=== PATIENT | male | born 1945 | race African-American/Black ===

== ENCOUNTER 2016-11-19 17:00 | Observation (INO) | payer MEDICARE, OTHER ==
[~2016-11-19] VITALS: Ht 167.6 cm; Wt 92.5 kg
[2016-11-19] VITALS (8 sets, daily range): BP systolic 128–144; BP diastolic 56–84; PULSE 65–98; RESP 16–20; TEMP 97.9–99; O2SAT 94–100
[~2016-11-19 17:00] MED LIST: ARTISOL2 EACH EYE; BUDE0.5S NEB; COLA100C PO; DUONI NEB; FURO1TAB93 PO; GLIP5 PO; HUMSS; HYDR-3533 PO; ISOS30 PO; LEVA500T PO; LORA1TAB PO; NITR.3 SL; POTA-267 PO; PROM25SU8 PO; SERO50TA PO; ZOLO50TA PO
--- NOTE | 2016-11-19 17:19 | PD ---
HPI Chief Complaint: Respiratory Symptoms Time Seen by Provider: 17:18 Travel History International Travel<30 days: No Contact w/Intl Traveler<30days: No Traveled to known affect area: No History of Present Illness HPI 71-year-old male came to the emergency room for history trach being dislodged. 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 Patient is not the best historian but thinks it has been out for 1-2 hours "but it could be more". Patient is able to breathe okay and his oxygen saturation is 100% on room air. He is also talking and communicating well but has reserved IQ. PFSH Past Medical History Narrative Medical List of his past medical, surgical, social and family history reviewed from the nursing note. Hx Anticoagulant Therapy: Yes Arthritis: Yes Asthma: Yes Atrial Fibrillation: Yes Autoimmune Disease: No Blood Disorders: No Anxiety: No Depression: Yes Heart Rhythm Problems: Yes Cancer: No Cardiac Catheterization: Yes Cardiovascular Problems: Yes High Cholesterol: Yes Chemotherapy: No Chest Pain: Yes Congestive Heart Failure: Yes COPD: No Cerebrovascular Accident: Yes Coronary Artery Disease: Yes Diabetes: Yes Diminished Hearing: Yes (HEARING AID) Deep Vein Thrombosis: Yes Endocrine: Yes Gastrointestinal Disorders: Yes GERD: Yes Glaucoma: No Genitourinary: Yes Headaches: Yes Hepatitis: Yes Hiatal Hernia: Yes Hypertension: Yes Immune Disorder: No Implanted Vascular Access Dvce: Yes Kidney Stones: Yes Musculoskeletal: Yes Neurologic: Yes (7 STROKES) Psychiatric: Yes Reproductive: No Respiratory: Yes Immunizations Current: No Migraines: No Myocardial Infarction: Yes Radiation Therapy: No Renal Failure: No Seizures: Yes Sickle Cell Disease: No Sleep Apnea: No Thyroid Disease: No Ulcer: No PNEUMOCCOCAL Vaccine (Year): 3 Past Surgical History Abdominal Surgery: Yes (HERNIA REPAIR) AICD: No Appendectomy: No Arteriovenous Shunt: No Body Medical Devices: cervical fusion Cardiac Surgery: Yes (CAROTID ENDARECTOMY) Cholecystectomy: No Coronary Artery Bypass Graft: No Coronary Stent: Yes (09/13) Ear Surgery: No Endocrine Surgery: No Eye Surgery: No Genitourinary Surgery: No Gynecologic Surgery: No Insulin Pump: No Joint Replacement: No Neurologic Surgery: Yes (CERVICAL FUSION) Oral Surgery: Yes (TEETH EXTRACTIONS) Pacemaker: No Thoracic Surgery: No Other Surgery: Yes (CYST REMOVAL, CAROTID ENDARTERECTOMY, TRACH IN PLACE) Social History Alcohol Use: No Tobacco Use: No (1979 05 PPD) Substance Use: No Allergies-Medications (Allergen,Severity, Reaction): Coded Allergies: No Known Allergies (Verified , 11/19/16) Comments No known drug allergies. Reported Meds & Prescriptions Reported Meds & Active Scripts Active Reported Nitroglycerin SL (Nitroglycerin) 0.4 Mg Subl 0.4 Mg SL DIRECTED PRN ONE TABLET UNDER THE TONGUE NEEDED FOR CHEST PAIN, MAY REPEAT EVERY FIVE MINUTES FOR A TOTAL OF 3 DOSES OR CALL 911 IF NO RELIEF Isosorbide Mononitrate ER (Isosorbide Mononitrate) 30 Mg Ellis 30 Mg PO DAILY Dulcolax Supp (Bisacodyl) 10 Mg Supp 10 Mg RECTAL DAILY PRN Enema Disposable (Sodium Phosphates) 1 Catalina Catalina 1 Applic RECTAL ON 4TH DAY PRN Milk of Magnesia Liq (Magnesium Hydroxide) 400 Mg/5 Ml Susp 30 Ml PO DAILY PRN Glipizide 5 Mg Tab 2.5 Mg PO BIDAC Take 30 minutes before a meal Glucagen Hypokit Inj Kit (Glucagon (Rdna) Inj Kit) 1 Mg Kit 1 Mg IM ONCE PRN Lasix (Furosemide) 40 Mg Tab 40 Mg PO BID Phenergan (Promethazine HCl) 25 Mg Tablet 25 Mg PO Q6H PRN Duoneb (Ipratropium-Albuterol Neb) 0.5-2.5 Mg/3 Ml Neb 3 Ml NEB Q6HR PRN Atorvastatin (Atorvastatin Calcium) 20 Mg Tab 20 Mg PO HS Lisinopril 2.5 Mg Tab 2.5 Mg PO DAILY Hold for systolic B/P less than 110 Duoneb (Ipratropium-Albuterol Neb) 0.5-2.5 Mg/3 Ml Neb 3 Ml NEB TID Meclizine (Meclizine HCl) 12.5 Mg Tab 12.5 Mg PO BID PRN Potassium Chloride ER (Potassium Chloride) 10 Meq Tab 10 Meq PO BID Tylenol (Acetaminophen) 325 Mg Tab 650 Mg PO Q4H PRN Maximum acetaminophen 3-4 grams; check daily total Levemir Flextouch Pen Inj (Insulin Detemir) 300 unit/3 ML Pen 16 Units SQ HS Novolog Flexpen Inj (Insulin Aspart) 300 Unit/3 Ml Pen 2-10 Units SQ BID Sliding Scale: 71-150=0 units, 151-200=2 units, 201-250=4 units, 251-300=6 units, 301-350=8 units, 351-400=10 units, .400=10 units and notify Coumadin (Warfarin) 2.5 Mg Tab 4.5 Mg PO DAILY Take 1 tablet (2.5mg) with 2mg tablet for a total dose of 4.5mg daily Coumadin (Warfarin) 2 Mg Tab 4.5 Mg PO DAILY Take 1 tablet (2mg) with 2.5mg tablet for a total dose of 4.5mg daily Multi-Vitamin/Minerals (Multiple Vitamins W/ Minerals) 1 Tab Tab 1 Tab PO DAILY Metformin (Metformin HCl) 1,000 Mg Tab 1,000 Mg PO BID With morning and evening meals Seroquel (Quetiapine Fumarate) 50 Mg Tab 50 Mg PO BID Colace (Docusate Sodium) 100 Mg Capsule 100 Mg PO BID Tylenol (Acetaminophen) 325 Mg Tab 650 Mg PO DAILY Guaifenesin ER (Guaifenesin) 600 Mg Tab.er.12h 600 Mg PO Q12HR Narrative Medication List of his home medications reviewed from the nursing note. Review of Systems Except as stated in HPI: all other systems reviewed are Neg Physical Exam Narrative GENERAL: Obese, no obvious distress SKIN: Focused skin assessment warm/dry. HEAD: Atraumatic. Normocephalic. EYES: Pupils equal and round. No scleral icterus. No injection or drainage. ENT: No nasal bleeding or discharge. Mucous membranes pink and moist. Trach stoma NECK: Trachea midline. No JVD. CARDIOVASCULAR: Regular rate and rhythm. No murmur appreciated. RESPIRATORY: No accessory muscle use. Clear to auscultation. Breath sounds equal bilaterally. GASTROINTESTINAL: Abdomen soft, non-tender, nondistended. Hepatic and splenic margins not palpable. MUSCULOSKELETAL: No obvious deformities. No clubbing. No cyanosis. No edema. NEUROLOGICAL: Awake and alert. No obvious cranial nerve deficits. Motor grossly within normal limits. Dysarthric speech. PSYCHIATRIC: Appropriate mood and affect; insight and judgment normal. Data Data Last Documented VS Vital Signs Date Time Temp Pulse Resp B/P Pulse Ox O2 Delivery O2 Flow Rate FiO2 11/19/16 18:19 94 18 141/72 99 Room Air 11/19/16 17:06 97.9 Orders ^ Saline Lock (11/19/16 18:29) Admit Order (Ed Use Only) (11/19/16 18:29) MDM Medical Decision Making Medical Screen Exam Complete: Yes Emergency Medical Condition: Yes Medical Record Reviewed: Yes Differential Diagnosis Trach fall out Narrative Course 7 PM I discussed the case with Dr. Beltre who is on from ENT since the initial trach was put in by Dr. Antoine. However Dr. Beltre very clearly told me that this was beyond the scope of his practice and general surgery should be consulted for trach. He was not sure why Dr. Antoine had put that trach in since general surgery test that in this hospital. At this point I discussed with Dr. Simental who is on-call for general surgery who said he will consult on the patient but will not take the patient under his service. I have let Dr. Romano know about this. Patient will be admitted to the ICU. Currently he is managing his airway well enough but needs to be observed and seen by surgeon. Procedures Procedure Narrative Trach insertion: I tried to insert a 5.0 in her diameter cannula trach that was similar to patient's original trach but fenestrated. After inserting about 2.5 cm I was unable to push it in any further. There was an obstruction. I try to insert a 5.0 ET tube which went in okay but patient did not tolerate it well side to take it out. Patient currently saturating 100%. EKG Prior to Arrival: No Physician Communication Physician Communication Dr. Beltre, Dr. Simental, Dr. Romano Diagnosis Primary Impression: trach dislodgment Admitting Information Admitting Physician Requests: Observation Sandra Slater MD Nov 19, 2016 17:18 Sandra Slater MD Nov 19, 2016 17:18
[2016-11-19] MEDS ORDERED: COUM2.5T PO (18:10)
[2016-11-19] MEDS ORDERED: GUAI600T34 PO (18:10)
[2016-11-19] MEDS ORDERED: ATOR20TA15 PO (18:10)
[2016-11-19] MEDS ORDERED: NITR1SUB3 SL (18:10)
[2016-11-19] MEDS ORDERED: MECL12.574 PO (18:10)
[2016-11-19] MEDS ORDERED: GLUCINJ IM (18:10)
[2016-11-19] MEDS ORDERED: GLIP5TAB8 PO (18:10)
[2016-11-19] MEDS ORDERED: IPRASOL NEB ×2 (18:10)
[2016-11-19] MEDS ORDERED: DULC10SU3 RECTAL (18:10)
[2016-11-19] MEDS ORDERED: POTA10TA2 PO (18:10)
[2016-11-19] MEDS ORDERED: NOVOINJ3 SQ (18:10)
[2016-11-19] MEDS ORDERED: FURO1TAB60 PO (18:10)
[2016-11-19] MEDS ORDERED: METF1000 PO (18:10)
[2016-11-19] MEDS ORDERED: TYLE325T PO ×2 (18:10)
[2016-11-19] MEDS ORDERED: PROM25TA10 PO (18:10)
[2016-11-19] MEDS ORDERED: MILKSUS PO (18:10)
[2016-11-19] MEDS ORDERED: COLA100C PO (18:10)
[2016-11-19] MEDS ORDERED: LISI2.5T3 PO (18:10)
[2016-11-19] MEDS ORDERED: INSU1INJ5 SQ (18:10)
[2016-11-19] MEDS ORDERED: MULTTAB62 PO (18:10)
[2016-11-19] MEDS ORDERED: ISOS30TA3 PO (18:10)
[2016-11-19] MEDS ORDERED: SERO50TA PO (18:10)
[2016-11-19] MEDS ORDERED: ENEMENE5 RECTAL (18:10)
[2016-11-19] MEDS ORDERED: COUM2TAB PO (18:10)
[2016-11-19] MEDS ORDERED: SODIUM CHLORIDE 0.9% FLUSH 10 ML FLUSH IV FLUSH PRN (18:45)
[2016-11-19] MEDS ORDERED: MAGNESIUM HYDROXIDE SUSP 30 ML CUP PO PRN ×2 (18:45)
[2016-11-19] MEDS ORDERED: GLUCAGON 1 MG IM PRN (18:45)
[2016-11-19] MEDS ORDERED: ACETAMINOPHEN 325 MG TAB PO PRN (18:45)
[2016-11-19] MEDS ORDERED: MECLIZINE HCL 25 MG TAB PO PRN (18:45)
[2016-11-19] MEDS ORDERED: BISACODYL 10 MG SUPP RECTAL PRN ×2 (18:45)
[2016-11-19] MEDS ORDERED: LACTULOSE SYRUP 20 GM/30 ML CUP PO PRN (18:45)
[2016-11-19] MEDS ORDERED: SENNOSIDES 8.6 MG TAB PO PRN (18:45)
[2016-11-19] MEDS ORDERED: NALOXONE HCL 0.4 MG/ML AMP IV PRN (18:45)
[2016-11-19] MEDS ORDERED: ONDANSETRON HCL 4 MG/2 ML VIAL IVP PRN (18:45)
[2016-11-19] MEDS ORDERED: GLUCAGON 1 MG/ML VIAL OTHER PRN (19:00)
[2016-11-19] MEDS ORDERED: cloNIDine HCL 0.1 MG TAB PO PRN (19:00)
[2016-11-19] MEDS ORDERED: ACETAMINOPHEN/HYDROcodone 325 MG/5 MG TAB PO PRN (19:00)
[2016-11-19] MEDS ORDERED: DEXTROSE 50% IN WATER 50 ML VIAL(D50) IV PRN (19:00)
[2016-11-19] MEDS ORDERED: PANTOPRAZOLE SODIUM 40 MG VIAL IV PUSH SCH (21:00)
[2016-11-19] MEDS ORDERED: DOCUSATE SODIUM 100 MG CAP PO SCH (21:00)
[2016-11-19] MEDS ORDERED: ATORVASTATIN 20 MG TAB PO SCH (21:00)
[2016-11-19] MEDS ORDERED: RESP: ALBUTEROL 2.5 MG/IPRATROPIUM 0.5 MG NEB (PRN) NEB (21:15)
[2016-11-19] MEDS ORDERED: PILL SPLITTER OTHER PRN (21:15)
[2016-11-19] MEDS ORDERED: INSULIN DETEMIR 100 UNITS/ML VIAL SQ SCH (21:30)
[2016-11-19] MEDS: metFORMIN HCL 500 MG TAB PO SCH (22:30)
[2016-11-19] MEDS: POTASSIUM CHLORIDE 10 MEQ CONTROLLED RELEASE TAB PO SCH (22:31)
[2016-11-19] MEDS: DOCUSATE SODIUM 50 MG/SENNA 8.6 MG TAB PO SCH (22:31)
[2016-11-19] MEDS: guaiFENesin E.R. 600 MG TAB PO SCH (22:31)
[2016-11-19] MEDS: FUROSEMIDE 40 MG TAB PO SCH (22:31)
[2016-11-19] MEDS: SODIUM CHLORIDE 0.9% FLUSH 10 ML FLUSH IV FLUSH SCH (22:32)
[2016-11-19] MEDS: QUEtiapine FUMARATE 25 MG TAB PO SCH (22:43)
[2016-11-19] MEDS: INSULIN ASPART SUPPLEMENTAL SCALE SQ SCH (22:45)
[2016-11-20] VITALS (10 sets, daily range): BP systolic 112–151; BP diastolic 53–88; PULSE 59–106; RESP 14–19; TEMP 97.9–98.6; O2SAT 98–99
[2016-11-20] MEDS: INSULIN ASPART SUPPLEMENTAL SCALE SQ SCH ×2 (07:00→11:00)
[2016-11-20] MEDS ORDERED: RESP: ALBUTEROL 2.5 MG/IPRATROPIUM 0.5 MG NEB (SCH) NEB (08:00)
--- NOTE | 2016-11-20 08:43 | HHI.DCPOC ---
Discharge Care Plan Diagnosis: (1) DM (diabetes mellitus) (2) Atrial fibrillation (3) PVD (peripheral vascular disease) (4) Carotid artery disease (5) Hypertension (6) CVA (cerebral infarction) (7) Tracheostomy complication (8) Tracheostomy dependent Goals to Promote Your Health * To prevent worsening of your condition and complications * To maintain your health at the optimal level Directions to Meet Your Goals Take your medications as prescribed Follow your dietary instruction Follow activity as directed Keep your appointments as scheduled Take your immunizations and boosters as scheduled If your symptoms worsen call your PCP, if no PCP go to Urgent Care Center or Emergency Room Smoking is Dangerous to Your Health. Avoid second hand smoke Call the 24-hour hour crisis hotline for domestic abuse at Dale Romano MD Nov 20, 2016 08:43
--- NOTE | 2016-11-20 08:45 | HHI.DS ---
Discharge Summary Admission Date Nov 19, 2016 at 18:31 Discharge Date: Nov 20, 2016 Admitting Diagnosis trach dislodgment (1) Tracheostomy dependent (2) Tracheostomy complication (3) CVA (cerebral infarction) (4) Hyperlipidemia (5) Hypertension (6) Carotid artery disease (7) PVD (peripheral vascular disease) (8) Atrial fibrillation (9) DM (diabetes mellitus) (10) DVT (deep venous thrombosis) Procedures trach replacement PE at Discharge GENERAL: SKIN: Warm and dry. TC C/D/I HEAD: Atraumatic. Normocephalic. EYES: Pupils equal and round. No scleral icterus. No injection or drainage. ENT: No nasal bleeding or discharge. Mucous membranes pink and moist. NECK: Trachea midline. No JVD. CARDIOVASCULAR: Regular rate and rhythm. RESPIRATORY: No accessory muscle use. Clear to auscultation. Breath sounds equal bilaterally. GASTROINTESTINAL: Abdomen soft, non-tender, nondistended. Hepatic and splenic margins not palpable. MUSCULOSKELETAL: Extremities without clubbing, cyanosis, or edema. No obvious deformities. NEUROLOGICAL: Awake and alert. No obvious cranial nerve deficits. Motor grossly within normal limits. 2 out of 5 muscle strength in the arms and legs. Normal speech. PSYCHIATRIC: Appropriate mood and affect; insight and judgment normal. Hospital Course 71 Y AAM. TRACH OUT AT SNF. BROUGHT INTO ER. ENT CONSULTED, SURGERY CONSULTED. [facility] MD ENDED UP REPLACING TRACH. PT IS STABLE. OK FOR DC. Discharge Disposition: Discharge to SNF Discharge Instructions DIET: Follow Instructions for: As Tolerated, No Restrictions Activities you can perform: Regular-No Restrictions Continued Medications: Acetaminophen (Tylenol) 325 Mg Tab 650 MG PO DAILY Ref 0 TAB Acetaminophen (Tylenol) 325 Mg Tab 650 MG PO Q4H Maximum acetaminophen 3-4 grams; check daily total PRN PAIN Ref 0 TAB Atorvastatin (Atorvastatin) 20 Mg Tab 20 MG PO HS Cholesterol Management #30 Ref 0 TAB Bisacodyl Supp (Dulcolax Supp) 10 Mg Supp 10 MG RECTAL DAILY PRN IF NO BM X 3 DAYS #12 Ref 0 SUPP Docusate Sodium (Colace) 100 Mg Capsule 100 MG PO BID Furosemide (Lasix) 40 Mg Tab 40 MG PO BID #60 Ref 0 TAB Glipizide (Glipizide) 5 Mg Tab 2.5 MG PO BIDAC Take 30 minutes before a meal Blood Sugar Management #60 Ref 0 TAB Glucagon (Rdna) Inj Kit (Glucagen Hypokit Inj Kit) 1 Mg Kit 1 MG IM ONCE PRN Blood Sugar Management #1 Ref 0 KIT Guaifenesin (Guaifenesin ER) 600 Mg Tab.er.12h 600 MG PO Q12HR Insulin Aspart Inj (Novolog Flexpen Inj) 300 Unit/3 Ml Pen 2-10 UNITS SQ BID Sliding Scale: 71-150=0 units, 151-200=2 units, 201-250=4 units, 251-300=6 units, 301-350=8 units, 351-400=10 units, .400=10 units and notify Blood Sugar Management #1 Ref 0 PEN Insulin Detemir Inj (Levemir Flextouch Pen Inj) 300 unit/3 ML Pen 16 UNITS SQ HS Blood Sugar Management Ref 0 PEN Ipratropium-Albuterol Neb (Duoneb) 0.5-2.5 Mg/3 Ml Neb 3 ML NEB TID Breathing Treatment #30 Ref 0 NEBULE Ipratropium-Albuterol Neb (Duoneb) 0.5-2.5 Mg/3 Ml Neb 3 ML NEB Q6HR PRN SHORTNESS OF BREATH #30 Ref 0 NEBULE Isosorbide Mononitrate ER (Isosorbide Mononitrate ER) 30 Mg Ellis 30 MG PO DAILY Prevent Chest Pain #30 Ref 0 TAB Lisinopril (Lisinopril) 2.5 Mg Tab 2.5 MG PO DAILY Hold for systolic B/P less than 110 #30 Ref 0 TAB Magnesium Hydroxide Liq (Milk of Magnesia Liq) 400 Mg/5 Ml Susp 30 ML PO DAILY PRN IF NO BM IN 3 DAYS #1 Ref 0 BOTTLE Meclizine (Meclizine) 12.5 Mg Tab 12.5 MG PO BID PRN VERTIGO Ref 0 TAB Metformin (Metformin) 1,000 Mg Tab 1000 MG PO BID With morning and evening meals Blood Sugar Management #60 Ref 0 TAB Multiple Vitamins W/ Minerals (Multi-Vitamin/Minerals) 1 Tab Tab 1 TAB PO DAILY Nutritional Supplement Nitroglycerin SL (Nitroglycerin SL) 0.4 Mg Subl 0.4 MG SL DIRECTED ONE TABLET UNDER THE TONGUE NEEDED FOR CHEST PAIN, MAY REPEAT EVERY FIVE MINUTES FOR A TOTAL OF 3 DOSES OR CALL 911 IF NO RELIEF PRN CHEST PAIN #100 Ref 0 TAB.SL Potassium Chloride ER (Potassium Chloride ER) 10 Meq Tab 10 MEQ PO BID Electrolyte Replacement #60 Ref 0 TAB Promethazine (Phenergan) 25 Mg Tablet 25 MG PO Q6H PRN NAUSEA OR VOMITING Ref 0 TAB Quetiapine (Seroquel) 50 Mg Tab 50 MG PO BID #60 Ref 0 TAB Sodium Phosphates (Enema Disposable) 1 Catalina Catalina 1 APPLIC RECTAL ON 4TH DAY PRN IF NO RESULTS FROM DULCOLAX Warfarin (Coumadin) 2 Mg Tab 4.5 MG PO DAILY Take 1 tablet (2mg) with 2.5mg tablet for a total dose of 4.5mg daily Prevent Blood Clot #30 Ref 0 TAB Warfarin (Coumadin) 2.5 Mg Tab 4.5 MG PO DAILY Take 1 tablet (2.5mg) with 2mg tablet for a total dose of 4.5mg daily Prevent Blood Clot #30 Ref 0 TAB Dale Romano MD Nov 20, 2016 08:45
[2016-11-20] MEDS ORDERED: WARFARIN SOD 2 MG TAB PO SCH (09:00)
[2016-11-20] MEDS ORDERED: LISINOPRIL 5 MG TAB PO SCH (09:00)
[2016-11-20] MEDS ORDERED: ISOSORBIDE MONONITRATE 30 MG TAB PO SCH (09:00)
[2016-11-20] MEDS ORDERED: WARFARIN SOD 2.5 MG TAB PO SCH (09:00)
[2016-11-20] MEDS: POTASSIUM CHLORIDE 10 MEQ CONTROLLED RELEASE TAB PO SCH (09:06)
[2016-11-20] MEDS: DOCUSATE SODIUM 50 MG/SENNA 8.6 MG TAB PO SCH (09:06)
[2016-11-20] MEDS: SODIUM CHLORIDE 0.9% FLUSH 10 ML FLUSH IV FLUSH SCH (09:07)
[2016-11-20] MEDS: QUEtiapine FUMARATE 25 MG TAB PO SCH (09:07)
[2016-11-20] MEDS: FUROSEMIDE 40 MG TAB PO SCH (09:07)
[2016-11-20] MEDS: metFORMIN HCL 500 MG TAB PO SCH (09:07)
[2016-11-20] MEDS: guaiFENesin E.R. 600 MG TAB PO SCH (09:07)
[2016-11-20 11:13] LABS: AUTOMATED NEUTROPHIL # 6.9 TH/MM3 (1.8-7.7); BASOPHIL % 0.4 % (0.0-2.0); EOSINOPHIL # 0.1 TH/MM3 (0-0.4); EOSINOPHIL % 1.4 % (0.0-4.0); HEMATOCRIT 38.6 % (39.0-51.0); HEMO FLAGS DIFF FINAL; LYMPH % 19.9 % (9.0-44.0); MEAN CELL VOLUME 89.5 FL (80.0-100.0); MEAN CORPUSCULAR HEMOGLOBIN 28.8 PG (27.0-34.0); MEAN CORPUSCULAR HGB CONC 32.1 % (32.0-36.0); MONO % 8.1 % (0.0-8.0); NEUT % 70.2 % (16.0-70.0); PLATELET COUNT 271 TH/MM3 (150-450); RED BLOOD COUNT 4.32 MIL/MM3 (4.50-5.90); RED CELL DISTRIBUTION WIDTH 13.9 % (11.6-17.2); WHITE BLOOD COUNT 9.8 TH/MM3 (4.0-11.0)
[2016-11-20 11:22] LABS: INTERNATIONAL NORMALIZED RATIO 1.7 RATIO; PROTHROMBIN TIME - PATIENT 19.1 SEC (9.8-11.6)
[2016-11-20 11:37] LABS: BICARBONATE 22.9 MEQ/L (21.0-32.0); POTASSIUM 3.8 MEQ/L (3.5-5.1)
== END 2016-11-20 11:24 ==
LOC: NEPE 17:00 → NEDA 18:31 → INTOOBSV 18:31 → NEDH 22:52 → HCIN 11-20 02:52
PROVIDERS: ADMIT Family Medicine; ATTEND Family Medicine
DX: Z43.0 Encounter for attention to tracheostomy (principal); J38.00 Paralysis of vocal cords and larynx, unspecified; I25.10 Atherosclerotic heart disease of native coronary artery without angina pectoris; I11.0 Hypertensive heart disease with heart failure; I73.9 Peripheral vascular disease, unspecified; I50.9 Heart failure, unspecified; E78.5 Hyperlipidemia, unspecified; I25.2 Old myocardial infarction; E78.00 Pure hypercholesterolemia, unspecified; J45.909 Unspecified asthma, uncomplicated; I48.91 Unspecified atrial fibrillation; E11.9 Type 2 diabetes mellitus without complications; K21.9 Gastro-esophageal reflux disease without esophagitis; K75.9 Inflammatory liver disease, unspecified; H91.90 Unspecified hearing loss, unspecified ear; F32.9 Major depressive disorder, single episode, unspecified; M19.90 Unspecified osteoarthritis, unspecified site; Z79.899 Other long term (current) drug therapy; Z79.01 Long term (current) use of anticoagulants; Z79.84 Long term (current) use of oral hypoglycemic drugs; Z86.73 Personal history of transient ischemic attack (TIA), and cerebral infarction without residual deficits
CPT/HCPCS: 80048; 82948; 85025; 85610; 92610; 94664; 97162; 99285; C9113; G0378; G8987; G8988

== ENCOUNTER 2016-12-09 18:45 | Emergency (ER) | payer MEDICARE, OTHER ==
[~2016-12-09 18:45] MED LIST changes: -ARTISOL2 EACH EYE; +ATOR20TA15 PO; -BUDE0.5S NEB; +COUM2.5T PO; +COUM2TAB PO; +DULC10SU3 RECTAL; -DUONI NEB; +ENEMENE5 RECTAL; +FURO1TAB60 PO; -FURO1TAB93 PO; -GLIP5 PO; +GLIP5TAB8 PO; +GLUCINJ IM; +GUAI600T34 PO; -HUMSS; -HYDR-3533 PO; +INSU1INJ5 SQ; +IPRASOL NEB; -ISOS30 PO; +ISOS30TA3 PO; -LEVA500T PO; +LISI2.5T3 PO; -LORA1TAB PO; +MECL12.574 PO; +METF1000 PO; +MILKSUS PO; +MULTTAB62 PO; -NITR.3 SL; +NITR1SUB3 SL; +NOVOINJ3 SQ; -POTA-267 PO; +POTA10TA2 PO; -PROM25SU8 PO; +PROM25TA10 PO; +TYLE325T PO; -ZOLO50TA PO
--- NOTE | 2016-12-09 19:25 | PD ---
HPI Chief Complaint: tracheostomy problem Time Seen by Provider: 19:23 Travel History International Travel<30 days: No Contact w/Intl Traveler<30days: No History of Present Illness HPI Patient is a 71-year-old male who arrives by EMS after 911 was called because he had the wrong size trach sleeve placed last night into his tracheostomy. Patient has absolutely no complaints currently. PFSH Past Medical History Hx Anticoagulant Therapy: Yes Arthritis: Yes Asthma: Yes Atrial Fibrillation: Yes Autoimmune Disease: No Blood Disorders: No Anxiety: No Depression: Yes Heart Rhythm Problems: Yes Cancer: No Cardiac Catheterization: Yes Cardiovascular Problems: Yes High Cholesterol: Yes Chemotherapy: No Chest Pain: Yes Congestive Heart Failure: Yes COPD: No Cerebrovascular Accident: Yes Coronary Artery Disease: Yes Diabetes: Yes Diminished Hearing: Yes (HEARING AID) Deep Vein Thrombosis: Yes Endocrine: Yes Gastrointestinal Disorders: Yes GERD: Yes Glaucoma: No Genitourinary: Yes Headaches: Yes Hepatitis: Yes Hiatal Hernia: Yes Hypertension: Yes Immune Disorder: No Implanted Vascular Access Dvce: Yes Kidney Stones: Yes Musculoskeletal: Yes Neurologic: Yes (7 STROKES) Psychiatric: Yes Reproductive: No Respiratory: Yes Immunizations Current: No Migraines: No Myocardial Infarction: Yes Radiation Therapy: No Renal Failure: No Seizures: Yes Sickle Cell Disease: No Sleep Apnea: No Thyroid Disease: No Ulcer: No PNEUMOCCOCAL Vaccine (Year): 3 Past Surgical History Abdominal Surgery: Yes (HERNIA REPAIR) AICD: No Appendectomy: No Arteriovenous Shunt: No Body Medical Devices: cervical fusion Cardiac Surgery: Yes (CAROTID ENDARECTOMY) Cholecystectomy: No Coronary Artery Bypass Graft: No Coronary Stent: Yes (09/13) Ear Surgery: No Endocrine Surgery: No Eye Surgery: No Genitourinary Surgery: No Gynecologic Surgery: No Insulin Pump: No Joint Replacement: No Neurologic Surgery: Yes (CERVICAL FUSION) Oral Surgery: Yes (TEETH EXTRACTIONS) Pacemaker: No Thoracic Surgery: No Other Surgery: Yes (CYST REMOVAL, CAROTID ENDARTERECTOMY, TRACH IN PLACE) Social History Alcohol Use: No Tobacco Use: No (1979 05 PPD) Substance Use: No Allergies-Medications (Allergen,Severity, Reaction): Coded Allergies: No Known Allergies (Verified , 12/09/16) Reported Meds & Prescriptions Reported Meds & Active Scripts Active Reported Nitroglycerin SL (Nitroglycerin) 0.4 Mg Subl 0.4 Mg SL DIRECTED PRN ONE TABLET UNDER THE TONGUE NEEDED FOR CHEST PAIN, MAY REPEAT EVERY FIVE MINUTES FOR A TOTAL OF 3 DOSES OR CALL 911 IF NO RELIEF Isosorbide Mononitrate ER (Isosorbide Mononitrate) 30 Mg Ellis 30 Mg PO DAILY Dulcolax Supp (Bisacodyl) 10 Mg Supp 10 Mg RECTAL DAILY PRN Enema Disposable (Sodium Phosphates) 1 Catalina Catalina 1 Applic RECTAL ON 4TH DAY PRN Milk of Magnesia Liq (Magnesium Hydroxide) 400 Mg/5 Ml Susp 30 Ml PO DAILY PRN Glipizide 5 Mg Tab 2.5 Mg PO BIDAC Take 30 minutes before a meal Glucagen Hypokit Inj Kit (Glucagon (Rdna) Inj Kit) 1 Mg Kit 1 Mg IM ONCE PRN Lasix (Furosemide) 40 Mg Tab 40 Mg PO BID Phenergan (Promethazine HCl) 25 Mg Tablet 25 Mg PO Q6H PRN Duoneb (Ipratropium-Albuterol Neb) 0.5-2.5 Mg/3 Ml Neb 3 Ml NEB Q6HR PRN Atorvastatin (Atorvastatin Calcium) 20 Mg Tab 20 Mg PO HS Lisinopril 2.5 Mg Tab 2.5 Mg PO DAILY Hold for systolic B/P less than 110 Duoneb (Ipratropium-Albuterol Neb) 0.5-2.5 Mg/3 Ml Neb 3 Ml NEB TID Meclizine (Meclizine HCl) 12.5 Mg Tab 12.5 Mg PO BID PRN Potassium Chloride ER (Potassium Chloride) 10 Meq Tab 10 Meq PO BID Tylenol (Acetaminophen) 325 Mg Tab 650 Mg PO Q4H PRN Maximum acetaminophen 3-4 grams; check daily total Levemir Flextouch Pen Inj (Insulin Detemir) 300 unit/3 ML Pen 16 Units SQ HS Novolog Flexpen Inj (Insulin Aspart) 300 Unit/3 Ml Pen 2-10 Units SQ BID Sliding Scale: 71-150=0 units, 151-200=2 units, 201-250=4 units, 251-300=6 units, 301-350=8 units, 351-400=10 units, .400=10 units and notify Coumadin (Warfarin) 2.5 Mg Tab 4.5 Mg PO DAILY Take 1 tablet (2.5mg) with 2mg tablet for a total dose of 4.5mg daily Coumadin (Warfarin) 2 Mg Tab 4.5 Mg PO DAILY Take 1 tablet (2mg) with 2.5mg tablet for a total dose of 4.5mg daily Multi-Vitamin/Minerals (Multiple Vitamins W/ Minerals) 1 Tab Tab 1 Tab PO DAILY Metformin (Metformin HCl) 1,000 Mg Tab 1,000 Mg PO BID With morning and evening meals Seroquel (Quetiapine Fumarate) 50 Mg Tab 50 Mg PO BID Colace (Docusate Sodium) 100 Mg Capsule 100 Mg PO BID Tylenol (Acetaminophen) 325 Mg Tab 650 Mg PO DAILY Guaifenesin ER (Guaifenesin) 600 Mg Tab.er.12h 600 Mg PO Q12HR Review of Systems Except as stated in HPI: all other systems reviewed are Neg Physical Exam Narrative GENERAL: Well-nourished, well-developed patient. SKIN: Focused skin assessment warm/dry. HEAD: Normocephalic. EYES: No scleral icterus. No injection or drainage. ENT: Patient is a [address], site is clean dry and intact. The sleeve is hanging out and has a speech valve at the end of it. NECK: Supple, trachea midline. No JVD or lymphadenopathy. CARDIOVASCULAR: Regular rate and rhythm without murmurs, gallops, or rubs. RESPIRATORY: Breath sounds equal bilaterally. No accessory muscle use. GASTROINTESTINAL: Abdomen soft, non-tender, nondistended. MUSCULOSKELETAL: No cyanosis, or edema. BACK: Nontender without obvious deformity. No CVA tenderness. Data Data Last Documented VS Vital Signs Date Time Temp Pulse Resp B/P Pulse Ox O2 Delivery O2 Flow Rate FiO2 12/09/16 19:40 98.1 84 16 168/88 100 MDM Medical Decision Making Medical Screen Exam Complete: Yes Emergency Medical Condition: Yes Differential Diagnosis Tracheostomy problem, tracheostomy dependent, tracheitis unlikely. Narrative Course Patient was roomed emergency department, with minimal effort his sleeve was removed and a new 50 sleeve was placed. He was locked in place in his valve was placed on top of it. The patient had no shortness of breath and no other physical complaints or warrants further workup at this time. He stable for discharge home, bedridden was called and was transported back to his facility. Diagnosis Primary Impression: Tracheostomy complication Disposition: DISCHARGE HOME Condition: Stable Paul Hernandez MD Dec 09, 2016 19:25
[2016-12-09 19:40] VITALS: BP 168/88; PULSE 84; RESP 16; TEMP 98.1; O2SAT 100
== END 2016-12-09 22:36 | disposition home or self-care (01) ==
LOC: NEPD 18:45
DX: J95.00 Unspecified tracheostomy complication (principal); E11.9 Type 2 diabetes mellitus without complications; E78.00 Pure hypercholesterolemia, unspecified; H91.90 Unspecified hearing loss, unspecified ear; I11.0 Hypertensive heart disease with heart failure; I25.10 Atherosclerotic heart disease of native coronary artery without angina pectoris; I25.2 Old myocardial infarction; I48.91 Unspecified atrial fibrillation; I50.9 Heart failure, unspecified; Z79.01 Long term (current) use of anticoagulants; Z79.4 Long term (current) use of insulin; Z86.718 Personal history of other venous thrombosis and embolism; Z86.73 Personal history of transient ischemic attack (TIA), and cerebral infarction without residual deficits; Z87.442 Personal history of urinary calculi; Z95.5 Presence of coronary angioplasty implant and graft
CPT/HCPCS: 99283

== ENCOUNTER 2017-01-10 08:16 | Emergency (ER) | payer MEDICARE, OTHER ==
[~2017-01-10] VITALS: Ht 165.1 cm; Wt 92.0 kg
[2017-01-10] VITALS (9 sets, daily range): BP systolic 114–159; BP diastolic 65–99; PULSE 89–100; RESP 18–20; TEMP 98.3; O2SAT 98–100
--- NOTE | 2017-01-10 08:52 | PD ---
HPI Chief Complaint: Respiratory Symptoms Time Seen by Provider: 08:49 Travel History International Travel<30 days: No Contact w/Intl Traveler<30days: No Traveled to known affect area: No History of Present Illness HPI SENT FROM [facility] DUE TO DISLODGED TRACH TUBE, NO RESP DISTRESS. CURRENTLY , NO ACTIVE COUGHING BUT PATIENT IS NOT A GREAT HISTORIAN PFSH Past Medical History Hx Anticoagulant Therapy: Yes Arthritis: Yes Asthma: Yes Atrial Fibrillation: Yes Autoimmune Disease: No Blood Disorders: No Anxiety: No Depression: Yes Heart Rhythm Problems: Yes Cancer: No Cardiac Catheterization: Yes Cardiovascular Problems: Yes High Cholesterol: Yes Chemotherapy: No Chest Pain: Yes Congestive Heart Failure: Yes COPD: No Cerebrovascular Accident: Yes Coronary Artery Disease: Yes Diabetes: Yes Patient Takes Glucophage: Yes Diminished Hearing: Yes (HEARING AID) Deep Vein Thrombosis: Yes Endocrine: Yes Gastrointestinal Disorders: Yes GERD: Yes Glaucoma: No Genitourinary: Yes Headaches: Yes Hepatitis: Yes Hiatal Hernia: Yes Heparin Induced Thrombocytopen: No Hypertension: Yes Immune Disorder: No Implanted Vascular Access Dvce: Yes Kidney Stones: Yes Musculoskeletal: Yes Neurologic: Yes (7 STROKES) Psychiatric: Yes Reproductive: No Respiratory: Yes Immunizations Current: No Migraines: No Myocardial Infarction: Yes Radiation Therapy: No Renal Failure: No Seizures: Yes Sickle Cell Disease: No Sleep Apnea: No Thyroid Disease: No Ulcer: No PNEUMOCCOCAL Vaccine (Year): 3 ?: Not Past Surgical History Abdominal Surgery: Yes (HERNIA REPAIR) AICD: No Appendectomy: No Arteriovenous Shunt: No Body Medical Devices: cervical fusion Cardiac Surgery: Yes (CAROTID ENDARECTOMY) Cholecystectomy: No Coronary Artery Bypass Graft: No Coronary Stent: Yes (09/13) Ear Surgery: No Endocrine Surgery: No Eye Surgery: No Genitourinary Surgery: No Gynecologic Surgery: No Insulin Pump: No Joint Replacement: No Neurologic Surgery: Yes (CERVICAL FUSION) Oral Surgery: Yes (TEETH EXTRACTIONS) Pacemaker: No Thoracic Surgery: No Other Surgery: Yes (CYST REMOVAL, CAROTID ENDARTERECTOMY, TRACH IN PLACE) Family History Family Myocardial Infarction: Yes (MOTHER HAD [place] ) Social History Alcohol Use: No Tobacco Use: No (1979) Substance Use: No Allergies-Medications (Allergen,Severity, Reaction): Coded Allergies: No Known Allergies (Verified , 01/10/17) Reported Meds & Prescriptions Reported Meds & Active Scripts Active Reported Nitroglycerin SL (Nitroglycerin) 0.4 Mg Subl 0.4 Mg SL DIRECTED PRN ONE TABLET UNDER THE TONGUE NEEDED FOR CHEST PAIN, MAY REPEAT EVERY FIVE MINUTES FOR A TOTAL OF 3 DOSES OR CALL 911 IF NO RELIEF Isosorbide Mononitrate ER (Isosorbide Mononitrate) 30 Mg Ellis 30 Mg PO DAILY Dulcolax Supp (Bisacodyl) 10 Mg Supp 10 Mg RECTAL DAILY PRN Enema Disposable (Sodium Phosphates) 1 Catalina Catalina 1 Applic RECTAL ON 4TH DAY PRN Milk of Magnesia Liq (Magnesium Hydroxide) 400 Mg/5 Ml Susp 30 Ml PO DAILY PRN Glipizide 5 Mg Tab 2.5 Mg PO BIDAC Take 30 minutes before a meal Glucagen Hypokit Inj Kit (Glucagon (Rdna) Inj Kit) 1 Mg Kit 1 Mg IM ONCE PRN Lasix (Furosemide) 40 Mg Tab 40 Mg PO BID Phenergan (Promethazine HCl) 25 Mg Tablet 25 Mg PO Q6H PRN Duoneb (Ipratropium-Albuterol Neb) 0.5-2.5 Mg/3 Ml Neb 3 Ml NEB Q6HR PRN Atorvastatin (Atorvastatin Calcium) 20 Mg Tab 20 Mg PO HS Lisinopril 2.5 Mg Tab 2.5 Mg PO DAILY Hold for systolic B/P less than 110 Duoneb (Ipratropium-Albuterol Neb) 0.5-2.5 Mg/3 Ml Neb 3 Ml NEB TID Meclizine (Meclizine HCl) 12.5 Mg Tab 12.5 Mg PO BID PRN Potassium Chloride ER (Potassium Chloride) 10 Meq Tab 10 Meq PO BID Tylenol (Acetaminophen) 325 Mg Tab 650 Mg PO Q4H PRN Maximum acetaminophen 3-4 grams; check daily total Levemir Flextouch Pen Inj (Insulin Detemir) 300 unit/3 ML Pen 16 Units SQ HS Novolog Flexpen Inj (Insulin Aspart) 300 Unit/3 Ml Pen 2-10 Units SQ BID Sliding Scale: 71-150=0 units, 151-200=2 units, 201-250=4 units, 251-300=6 units, 301-350=8 units, 351-400=10 units, .400=10 units and notify Coumadin (Warfarin) 2.5 Mg Tab 4.5 Mg PO DAILY Take 1 tablet (2.5mg) with 2mg tablet for a total dose of 4.5mg daily Coumadin (Warfarin) 2 Mg Tab 4.5 Mg PO DAILY Take 1 tablet (2mg) with 2.5mg tablet for a total dose of 4.5mg daily Multi-Vitamin/Minerals (Multiple Vitamins W/ Minerals) 1 Tab Tab 1 Tab PO DAILY Metformin (Metformin HCl) 1,000 Mg Tab 1,000 Mg PO BID With morning and evening meals Seroquel (Quetiapine Fumarate) 50 Mg Tab 50 Mg PO BID Colace (Docusate Sodium) 100 Mg Capsule 100 Mg PO BID Tylenol (Acetaminophen) 325 Mg Tab 650 Mg PO DAILY Guaifenesin ER (Guaifenesin) 600 Mg Tab.er.12h 600 Mg PO Q12HR Review of Systems Except as stated in HPI: all other systems reviewed are Neg Physical Exam Narrative GENERAL: PATIENT IS A BIT APPREHENSIVE SKIN: Warm and dry. HEAD: Atraumatic. Normocephalic. EYES: Pupils equal and round. No scleral icterus. No injection or drainage. ENT: No nasal bleeding or discharge. Mucous membranes pink and moist. NECK: Trachea midline. No JVD. TRACH OSTOMY NOTED, SLIGHTLY BLODDY POSSIBLY DUE FROM DISLODGEMENT (SUCTIONED) CARDIOVASCULAR: Regular rate and rhythm. RESPIRATORY: No accessory muscle use. Clear to auscultation. Breath sounds equal bilaterally. GASTROINTESTINAL: Abdomen soft, non-tender, nondistended. Hepatic and splenic margins not palpable. MUSCULOSKELETAL: Extremities without clubbing, cyanosis, or edema. No obvious deformities. NEUROLOGICAL: Awake and alert. No obvious cranial nerve deficits. Motor grossly within normal limits. Five out of 5 muscle strength in the arms and legs. Normal speech. PSYCHIATRIC: Appropriate mood and affect; insight and judgment normal. Data Data Last Documented VS Vital Signs Date Time Temp Pulse Resp B/P (MAP) Pulse Ox O2 Delivery O2 Flow Rate FiO2 01/10/17 10:02 100 20 124/84 (97) 99 Trach Collar 15.00 01/10/17 08:20 98.3 Orders Orders Midazolam Inj (Versed Inj) (01/10/17 08:54) Midazolam Inj (Versed Inj) (01/10/17 09:17) Midazolam Inj (Versed Inj) (01/10/17 10:29) [facility] Medical Decision Making Medical Screen Exam Complete: Yes Emergency Medical Condition: Yes Medical Record Reviewed: Yes Differential Diagnosis N/A Narrative Course ATTEMPTED TO PLACE THE SAME 5-0 FENESTRATED TRACH TUBE IN USING AN INTRODUCER--- I WAS ABLE TO EASILY PLACE INTRODUCER IN BUT UNABLE TO PASS TRACH 5 OR 4-0 THROUGH, SO CALL MADE TO DOCS BELOW TO ASSIST IN REPLACING. Physician Communication Physician Communication D/W IR WHO STATED NOT DONE BY IR, NEXT I SPOKE W/ DR PATEL WHO STATED TO CALL ENT [facility] WHO PLACED IT, DR NEFF DEBT COLLECTOR FOR [facility] STATED THAT HE HAS NOT DONE ONE IN "YEARS" AND TO CALL GENERAL SURGERY FOR HELP IN REPLACING..... DR MOSS PERSONALLY CAME DOWN AND SUCCESSFULLY REPLACED IT Diagnosis Primary Impression: TRACHEOSTOMY DISLODGEMENT S/P REPLACEMENT Lee Brush MD Jan 10, 2017 08:52
[2017-01-10] MEDS ORDERED: MIDAZOLAM HCL 5 MG/ML VIAL (1 ML) ONE ×3 (08:54→10:29)
[2017-01-10 11:18] LABS: APTT (PATIENT) 34.8 SEC (24.3-30.1); INTERNATIONAL NORMALIZED RATIO 2.3 RATIO; PROTHROMBIN TIME - PATIENT 26.5 SEC (9.8-11.6)
--- NOTE | 2017-01-11 06:23 | MB ---
cc: ELIECER SIMENTAL MD DATE OF CONSULTATION 01/10/2017 REASON FOR CONSULTATION Dislodgement of tracheostomy. HISTORY OF PRESENT ILLNESS The patient is a 71-year-old male who underwent a previous carotid endarterectomy and some sort of laryngeal damage necessitating a tracheostomy. The patient underwent tracheostomy by Dr. Antoine who is an ENT and subsequently has had multiple issues with a tracheostomy including tracheostomy dislodgement. On consultation with Dr. Ascencio who is covering for ENT, evidently does not know how to do replacement of tracheostomy and is very uncomfortable in the neck area despite being an ENT surgeon and refused to cover and assist in replacement of tracheostomy despite him being diagnostic cardiac sonographer coverage for the head/neck ENT service. Therefore Surgery was consulted for evaluation and possible replacement of tracheostomy due to dislodgement. The patient is a very poor historian. Records were reviewed and the chart obtained. Evidently the patient is at a custodial and again the tracheostomy has come out several times and replaced. Attempts to be replaced to the emergency department were not successful and again surgical consultation was warranted. On my assessment the patient is stable relatively. A nasal trumpet is in place and he is sating 98% and his stoma site is patent, however, somewhat stenosed. He denies any significant shortness of breath and is not in respiratory distress but is coughing up some phlegm and mucus. PAST MEDICAL HISTORY 1. History of cardiac cath. 2. Cholesterolemia. 3. CHF. 4. Stroke. 5. Diabetes. 6. Coronary artery disease. 7. DVT. 8. Gastroesophageal reflux disease. 9. Hepatitis. 10. Hiatal hernia. 11. Hypertension. 12. Kidney stones. 13. Seizures. 14. Arthritis. 15. Asthma. 16. Atrial fibrillation on Coumadin. PAST SURGICAL HISTORY 1. Hernia repair. 2. Carotid endarterectomy. 3. Cervical fusion. 4. Coronary stents. 5. Teeth extraction. 6. Cyst removal. 7. Tracheostomy by Dr. Antoine. FAMILY HISTORY Mother with NE, coronary disease. SOCIAL HISTORY Denies ETOH, smoking or IVDA. Past history of smoking. ALLERGIES No known drug allergies. MEDICATIONS See EMR. Coumadin. REVIEW OF SYSTEMS GENERAL: Difficult to obtain. Appears responsive. NECK/HEENT: Stoma site tracheostomy. RESPIRATORY: Complained of cough. Denies wheeze. CARDIOVASCULAR: Denies chest pain or palpitations. ABDOMEN: Denies nausea or vomiting. : Denies dysuria, hematuria. MUSCULOSKELETAL: Denies pain or swelling. NEUROLOGIC: Denies numbness, tingling. PHYSICAL EXAMINATION GENERAL: No acute distress. VITAL SIGNS: Temperature 98.3, pulse 100, respirations 20, blood pressure 124/84, saturation 99%. HEENT: Pupils equal, round, reactive. NECK: Stoma site patent but stenosed. Scant blood. Healed carotid endarterectomy surgical scar. LUNGS: Bilateral expansion, coarse. HEART: S1-S2, regularly irregular. ABDOMEN: Soft, nontender, nondistended. : Within normal limits. MUSCULOSKELETAL: Warm, well-perfused. PSYCH: Appropriate mood and affect. LABORATORY AND DIAGNOSTIC DATA INR 2.3. PT 26.5. No imaging currently available. ASSESSMENT The patient poor historian, 71-year-old male presents with dislodgement of tracheostomy, previous tracheostomy placed by Dr. Antoine with ENT. Evidently current ENT coverage as very uncomfortable with dealing with tracheostomies or head and neck complications and issues. PLAN After a full workup, discussed with the emergency department attending for emergent replacement of Shiley tracheostomy. This will plan to be done at bedside. PROCEDURE NOTE The patient was placed upright in the bed with a shoulder roll placed to extend the neck. Suction obtained. Nasal cannula oxygenation up to 100%. T-tube placed, available and ready along with ET tube and intubation supplies as needed. A #4 Shiley was placed after lubrication and placement of an introducer guide into the stoma track. The tracheostomy was placed over this and guidewire into the trach. This was secured in place with trache ties. The patient was then suctioned multiple times. The patient was noted to have 99% saturation and the stethoscope confirmed bilateral breath sounds. The patient tolerated the procedure well. PREOPERATIVE DIAGNOSIS Dislodged trach. POSTOPERATIVE DIAGNOSIS Dislodged trach. PROCEDURE PERFORMED Reinsertion of tracheostomy at bedside. SURGEON Dr. Eliecer Simental OFFBE[employer] SEW[employer] PIPE See ER sheet. ANESTHESIA 2.5 of Versed. COMPLICATIONS None. WOUND CLASSIFICATION Clean. FINDINGS Scant blood. Good placement of tracheostomy. Saturations 99%. Confirmation of trach with bilateral breath sounds evident. MD VERONIKA Urias/JANIE /9:19 PM /5:57 AM MTDIván
--- NOTE | 2017-01-11 06:29 | MR ---
cc: RON SIMENTAL MD DATE 01/10/2017 PROCEDURE NOTE The patient was placed upright in the bed with a shoulder roll placed to extend the neck. Suction obtained. Nasal cannula oxygenation up to 100%. T-tube placed, available and ready along with ET tube and intubation supplies as needed. A #4 Shiley was placed after lubrication and placement of an introducer guide into the stoma track. The tracheostomy was placed over this and guidewire into the trach. This was secured in place with trach ties. The patient was then suctioned multiple times. The patient was noted to have 99% saturation and the stethoscope confirmed bilateral breath sounds. The patient tolerated the procedure well. PREOPERATIVE DIAGNOSIS Dislodged trach. POSTOPERATIVE DIAGNOSIS Dislodged trach. PROCEDURE PERFORMED Reinsertion of tracheostomy at bedside. SURGEON Dr. Ron Simental CRUST SORTER See ER sheet. ANESTHESIA 2.5 of Versed. COMPLICATIONS None. WOUND CLASSIFICATION Clean. FINDINGS Scant blood. Good placement of tracheostomy. Saturations 99%. Confirmation of trach with bilateral breath sounds evident. MD VERONIKA Urias/SSB /9:19 PM /6:20 AM .2
== END 2017-01-10 14:33 | disposition home or self-care (01) ==
LOC: NEPE 08:16
DX: J95.09 Other tracheostomy complication (principal); R05 Cough; I50.9 Heart failure, unspecified; E11.9 Type 2 diabetes mellitus without complications; I25.10 Atherosclerotic heart disease of native coronary artery without angina pectoris; K21.9 Gastro-esophageal reflux disease without esophagitis; I11.0 Hypertensive heart disease with heart failure; R56.9 Unspecified convulsions; J45.909 Unspecified asthma, uncomplicated
CPT/HCPCS: 85610; 85730; 99285; A7521; J2250

== ENCOUNTER 2017-07-01 18:25 | Observation (INO) | payer MEDICARE, OTHER ==
[2017-07-01] VITALS (7 sets, daily range): BP systolic 141–161; BP diastolic 78–121; PULSE 84–108; RESP 18–22; TEMP 98–98.3; O2SAT 98–100
[~2017-07-01] VITALS: Ht 167.6 cm; Wt 75.0 kg
[~2017-07-01 18:25] MED LIST changes: -COLA100C PO; +COLA100C5 PO
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
[2017-07-01] MEDS ORDERED: WARF-58 PO (19:27)
[2017-07-01] MEDS ORDERED: TRAM50TA PO (19:27)
[2017-07-01] MEDS ORDERED: [UNRECOGNIZED DRUG - OTHER] TOPICAL (19:27)
[2017-07-01] MEDS ORDERED: QUET1TAB7 PO (19:27)
[2017-07-01] MEDS ORDERED: BUDE0.5S NEB (19:27)
[2017-07-01] MEDS ORDERED: LIDOCAINE 2% JELLY 5 ML TUBE ONE (19:33)
[2017-07-01] MEDS ORDERED: LIDOCAINE 2% JELLY 30 ML TUBE TOPICAL ONE (19:45)
[2017-07-01] MEDS ORDERED: LIDOCAINE-PRILOCAIN 2.5% CREAM 5 GM TUBE ONE (19:56)
[2017-07-01] MEDS ORDERED: SODIUM CHLORIDE 0.9% FLUSH 10 ML FLUSH IVF PRN (20:45)
[2017-07-01 20:52] LABS: AUTOMATED NEUTROPHIL # 4.5 TH/MM3 (1.8-7.7); BASOPHIL % 0.6 % (0.0-2.0); EOSINOPHIL # 0.2 TH/MM3 (0-0.4); HEMATOCRIT 36.9 % (39.0-51.0); HEMOGLOBIN 12.3 GM/DL (13.0-17.0); LYMPH % 29.6 % (9.0-44.0); LYMPHOCYTE # 2.4 TH/MM3 (1.0-4.8); MEAN CELL VOLUME 89.6 FL (80.0-100.0); MEAN CORPUSCULAR HEMOGLOBIN 29.9 PG (27.0-34.0); MEAN CORPUSCULAR HGB CONC 33.4 % (32.0-36.0); MEAN PLATELET VOLUME 7.8 FL (7.0-11.0); MONO % 11.9 % (0.0-8.0); NEUT % 55.9 % (16.0-70.0); PLATELET COUNT 350 TH/MM3 (150-450); RED BLOOD COUNT 4.12 MIL/MM3 (4.50-5.90); RED CELL DISTRIBUTION WIDTH 13.5 % (11.6-17.2)
[2017-07-01 21:14] LABS: BICARBONATE 24.9 MEQ/L (21.0-32.0); CALCIUM 9.5 MG/DL (8.5-10.1); CREATININE 1.04 MG/DL (0.60-1.30)
[2017-07-01 21:19] LABS: PROTHROMBIN TIME - PATIENT 20.1 SEC (9.8-11.6)
[2017-07-01] MEDS ORDERED: traMADol HCL 50 MG TAB PO PRN (22:30)
[2017-07-01] MEDS ORDERED: NALOXONE HCL 0.4 MG/ML AMP IV PUSH PRN (22:30)
[2017-07-01] MEDS ORDERED: SODIUM CHLORIDE 0.9% FLUSH 10 ML FLUSH IV FLUSH PRN (22:30)
[2017-07-01] MEDS ORDERED: DEXTROSE 50% IN WATER 50 ML VIAL(D50) IV PUSH PRN (22:45)
[2017-07-01] MEDS ORDERED: PILL SPLITTER OTHER PRN (22:45)
[2017-07-01] MEDS ORDERED: RESP: ALBUTEROL 2.5 MG/IPRATROPIUM 0.5 MG NEB (PRN) NEB (22:45)
[2017-07-01] MEDS ORDERED: GLUCAGON 1 MG/ML VIAL OTHER PRN (22:45)
[2017-07-02] VITALS (8 sets, daily range): BP systolic 128–152; BP diastolic 73–87; PULSE 80–87; RESP 15–20; TEMP 96–97.8; O2SAT 96–99
[2017-07-02 06:11] LABS: BICARBONATE 27.4 MEQ/L (21.0-32.0); CALCIUM 9.3 MG/DL (8.5-10.1); CREATININE 0.81 MG/DL (0.60-1.30)
[2017-07-02 06:12] LABS: AUTOMATED NEUTROPHIL # 3.8 TH/MM3 (1.8-7.7); BASOPHIL # 0.1 TH/MM3 (0-0.2); BASOPHIL % 0.7 % (0.0-2.0); EOSINOPHIL # 0.5 TH/MM3 (0-0.4); EOSINOPHIL % 5.8 % (0.0-4.0); HEMATOCRIT 36.5 % (39.0-51.0); HEMOGLOBIN 12.3 GM/DL (13.0-17.0); LYMPH % 36.9 % (9.0-44.0); LYMPHOCYTE # 3.1 TH/MM3 (1.0-4.8); MEAN CELL VOLUME 90.8 FL (80.0-100.0); MEAN CORPUSCULAR HEMOGLOBIN 30.6 PG (27.0-34.0); MEAN CORPUSCULAR HGB CONC 33.7 % (32.0-36.0); MEAN PLATELET VOLUME 8.3 FL (7.0-11.0); MONO % 10.9 % (0.0-8.0); MONOCYTE # 0.9 TH/MM3 (0-0.9); NEUT % 45.7 % (16.0-70.0); PLATELET COUNT 348 TH/MM3 (150-450); RED BLOOD COUNT 4.02 MIL/MM3 (4.50-5.90); RED CELL DISTRIBUTION WIDTH 13.5 % (11.6-17.2); WHITE BLOOD COUNT 8.3 TH/MM3 (4.0-11.0)
[2017-07-02] MEDS: ISOSORBIDE MONONITRATE 30 MG CR TAB (IMDUR) PO SCH (07:00)
--- NOTE | 2017-07-02 07:25 | HHI.HP ---
History of Present Illness Primary Care Physician Unknown Admission Diagnosis Tracheostomy Dislodgement Diagnoses: Past Family Social History Allergies: Coded Allergies: No Known Allergies (Verified Allergy, Unknown, 07/01/17) Physical Exam Vital Signs Vital Signs Date Time Temp Pulse Resp B/P (MAP) Pulse Ox O2 Delivery O2 Flow Rate FiO2 07/02/17 05:59 97.2 84 19 137/77 (97) 99 07/02/17 03:00 97.8 87 20 128/76 (93) 98 07/01/17 23:00 98.0 84 20 152/79 (103) 99 07/01/17 21:51 87 20 141/78 (99) 100 Room Air 07/01/17 21:38 108 20 161/121 (134) 98 Nasal Cannula 2.00 07/01/17 21:09 100 07/01/17 20:21 106 22 146/83 (104) 100 Nasal Cannula 2.00 07/01/17 19:20 100 21 07/01/17 18:51 102 18 99 Room Air 07/01/17 18:43 98.3 105 18 146/83 (104) 99 Physical Exam GENERAL: This is a well-nourished, well-developed patient, in no apparent distress. SKIN: No rashes, ecchymoses or lesions. Cool and dry. HEAD: Atraumatic. Normocephalic. No temporal or scalp tenderness. EYES: Pupils equal round and reactive. Extraocular motions intact. No scleral icterus. No injection or drainage. ENT: Nose without bleeding, purulent drainage or septal hematoma. Throat without erythema, tonsillar hypertrophy or exudate. Uvula midline. Airway patent. NECK: Trachea midline. No JVD or lymphadenopathy. Supple, nontender, no meningeal signs. CARDIOVASCULAR: Regular rate and rhythm without murmurs, gallops, or rubs. RESPIRATORY: Clear to auscultation. Breath sounds equal bilaterally. No wheezes , rales, or rhonchi. GASTROINTESTINAL: Abdomen soft, non-tender, nondistended. No hepato-splenomegaly , or palpable masses. No guarding. MUSCULOSKELETAL: Extremities without clubbing, cyanosis, or edema. No joint tenderness, effusion, or edema noted. No calf tenderness. Negative Homans sign bilaterally. NEUROLOGICAL: Awake and alert. Cranial nerves II through XII intact. Motor and sensory grossly within normal limits. Five out of 5 muscle strength in all muscle groups. Normal speech. Laboratory Laboratory Tests Test 07/01/17 20:35 07/02/17 05:15 White Blood Count 8.0 8.3 Red Blood Count 4.12 4.02 Hemoglobin 12.3 12.3 Hematocrit 36.9 36.5 Mean Corpuscular Volume 89.6 90.8 Mean Corpuscular Hemoglobin 29.9 30.6 Mean Corpuscular Hemoglobin Concent 33.4 33.7 Red Cell Distribution Width 13.5 13.5 Platelet Count 350 348 Mean Platelet Volume 7.8 8.3 Neutrophils (%) (Auto) 55.9 45.7 Lymphocytes (%) (Auto) 29.6 36.9 Monocytes (%) (Auto) 11.9 10.9 Eosinophils (%) (Auto) 2.0 5.8 Basophils (%) (Auto) 0.6 0.7 Neutrophils # (Auto) 4.5 3.8 Lymphocytes # (Auto) 2.4 3.1 Monocytes # (Auto) 1.0 0.9 Eosinophils # (Auto) 0.2 0.5 Basophils # (Auto) 0.0 0.1 CBC Comment DIFF FINAL DIFF FINAL Differential Comment Prothrombin Time 20.1 Prothromb Time International Ratio 2.0 Activated Partial Thromboplast Time 33.3 Blood Urea Nitrogen 14 10 Creatinine 1.04 0.81 Random Glucose 178 146 Calcium Level 9.5 9.3 Sodium Level 133 137 Potassium Level 4.0 4.1 Chloride Level 100 104 Carbon Dioxide Level 24.9 27.4 Anion Gap 8 6 Estimat Glomerular Filtration Rate 86 114 Result Diagram: 07/02/1751407/02/1715 Caprini VTE Risk Assessment Caprini VTE Risk Assessment: Mod/High Risk (score >= 2) Caprini Risk Assessment Model Point Value = 1 Point Value = 2 Point Value = 3 Point Value = 5 Age 41-60 Minor surgery BMI > 25 kg/m2 Swollen legs Varicose veins or History of unexplained or recurrent spontaneous Oral contraceptives or hormone replacement Sepsis (< 1 month) Serious lung disease, including pneumonia (< 1 month) Abnormal pulmonary function Acute myocardial infarction Congestive heart failure (< 1 month) History of inflammatory bowel disease Medical patient at bed rest Age 61-74 Arthroscopic surgery Major open surgery (> 45 min) Laparoscopic surgery (> 45 min) Malignancy Confined to bed (> 72 hours) Immobilizing plaster cast Central venous access Age >= 75 History of VTE Family history of VTE Factor V Leiden Prothrombin [id number] Lupus anticoagulant Anticardiolipin antibodies Elevated serum homocysteine Heparin-induced thrombocytopenia Other congenital or acquired thrombophilia Stroke (< 1 month) Elective arthroplasty Hip, pelvis, or leg fracture Acute spinal cord injury (< 1 month) Prophylaxis Regimen Total Risk Factor Score Risk Level Prophylaxis Regimen 0-1 Low Early ambulation 2 Moderate Order ONE of the following: *Sequential Compression Device (SCD) *Heparin 5000 units SQ BID 3-4 Higher Order ONE of the following medications: *Heparin 5000 units SQ TID *Enoxaparin/Lovenox 40 mg SQ daily (WT < 150 kg, CrCl > 30 mL/min) *Enoxaparin/Lovenox 30 mg SQ daily (WT < 150 kg, CrCl > 10-29 mL/min) *Enoxaparin/Lovenox 30 mg SQ BID (WT < 150 kg, CrCl > 30 mL/min) AND/OR *Sequential Compression Device (SCD) 5 or more Highest Order ONE of the following medications: *Heparin 5000 units SQ TID (Preferred with Epidurals) *Enoxaparin/Lovenox 40 mg SQ daily (WT < 150 kg, CrCl > 30 mL/min) *Enoxaparin/Lovenox 30 mg SQ daily (WT < 150 kg, CrCl > 10-29 mL/min) *Enoxaparin/Lovenox 30 mg SQ BID (WT < 150 kg, CrCl > 30 mL/min) AND *Sequential Compression Device (SCD) Assessment and Plan Assessment and Plan admit surg consult then back to Dale Shields MD Jul 02, 2017 07:25
[2017-07-02] MEDS: INSULIN ASPART SUPPLEMENTAL SCALE SQ SCH ×4 (08:00→20:03)
[2017-07-02] MEDS: RESP: BUDESONIDE 0.5 MG/2 ML NEB NEB SCH ×2 (08:23→19:12)
[2017-07-02] MEDS: QUEtiapine FUMARATE 25 MG TAB PO SCH ×2 (09:00→20:04)
[2017-07-02] MEDS: POTASSIUM CHLORIDE 10 MEQ CONTROLLED RELEASE TAB PO SCH ×2 (09:00→20:04)
[2017-07-02] MEDS: LISINOPRIL 5 MG TAB PO SCH (09:00)
[2017-07-02] MEDS: guaiFENesin E.R. 600 MG TAB PO SCH ×2 (09:00→20:04)
[2017-07-02] MEDS: FUROSEMIDE 40 MG TAB PO SCH ×2 (09:00→20:04)
[2017-07-02] MEDS: DEXT 5%-NACL 0.45% 1000 ML INJ 1,000 ML IV SCH ×2 (11:00→20:17)
--- NOTE | 2017-07-02 12:50 | MH ---
cc: DALE FREEMAN MD DATE OF ADMISSION: 07/01/2017 CHIEF COMPLAINT: Tracheal dislodgement. HISTORY OF PRESENT ILLNESS: Germán Villanueva is a 72-year-old -Chinese male [facility] facility 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 He was subsequently sent to the emergency room. The emergency room physician called Dr. Reinoso and Dr. Hicks. They attempted reinsertion at the bedside. It appears this was unsuccessful and/or there was temporary placement; however, at this point, the tracheostomy has been taken out. He appears stable. I discussed with the nurse and his 02 saturations have been normal. There is a slight bit of drainage there. The patient has no acute complaints although he is a poor historian. PAST MEDICAL HISTORY: 1. Atrial fibrillation. 2. Asthma. 3. Coronary artery disease. 4. Hyperlipidemia. 5. Congestive heart failure. 6. CVA. 7. Diabetes. 8. DVT. 9. Seizures. 10. Myocardial infarction. PAST SURGICAL HISTORY: 1. Tracheostomy placement with numerous dislodgements and replacements. 2. Cervical fusion. 3. Carotid endarterectomy. FAMILY HISTORY: Mother with a myocardial infarction. Father unknown. Otherwise noncontributory. SOCIAL HISTORY: One pack per day smoker; however, he had stopped due to being placed in facilities recently. No alcohol use. No illicit drug usage. ALLERGIES: NO KNOWN DRUG ALLERGIES. PENITENTIARY MEDICATIONS: 1. Budesonide. 2. Warfarin. 3. Seroquel. 4. Isosorbide. 5. Glipizide. 6. Lasix. 7. DuoNeb. 8. Atorvastatin. 9. Lisinopril. 10. Potassium. 11. Levemir. 12. NovoLog sliding scale. 13. Metformin. 14. Colace. 15. Tylenol. 16. Guaifenesin. REVIEW OF SYSTEMS: Tracheal dislodgement and shortness of breath and drainage from the trache site. Review of systems negative times fourteen except as stated in history of present illness. He has chronic encephalopathy and the review of systems mostly overall limited. LABS: Hemoglobin 12.3, platelet count 348,000, glucose 146, creatinine 0.81, INR 2.0. IMAGING STUDIES: None. PHYSICAL EXAMINATION: VITAL SIGNS: Temperature 96.7, pulse 82, respirations 18, blood pressure 142/73, pulse oximetry 98% on two liters. GENERAL: In general, he is an alert elder -Chinese male. He is lying flat. He has dysphagia. HEAD, EYES, EARS, NOSE, THROAT: Overall limited. The tracheostomy site is clean, dry and intact. There is some slight whitish secretions and otherwise no jugular venous distention. CHEST: Transmitted upper airway sounds. Overall no consolidation or crackles. CARDIOVASCULAR: Regular rate and rhythm. No murmurs, rubs, clicks or gallops ABDOMEN: Abdomen soft and nontender. No rebound. No guarding. EXTREMITIES: 1+ edema in the feet. SKIN: Overall clear. NEUROLOGIC: Alert and oriented times one. Cranial nerves are grossly intact. He has generalized weakness at 1/5 in all extremities although he is not particularly following commands. ASSESSMENT: 1. Tracheostomy dislodgement. 2. DVT. 3. Coronary artery disease. 4. Diabetes. 5. Atrial fibrillation. 6. Peripheral vascular disease. 7. Carotid artery disease. PLAN: 1. Observation admission. 2. General surgery consult. 3. NPO. 4. IV fluids. 5. Telemetry. 6. Sliding scale insulin. 7. The patient may possibly be able [facility] if he is medically stable. It appears he may not need the tracheostomy any further and will consult the fitter type bar and segment. Dale Freeman MD RP/MARYAM /10:19 AM /12:33 PM
--- NOTE | 2017-07-02 16:07 | PD.CONS ---
History of Present Illness Service ENT Consult Requested By Dr Romano Reason for Consult Trach tube out Primary Care Physician Unknown Diagnoses: History of Present Illness 72 year old male. History of bilateral vocal cord paralysis secondary to carotid endarterectomy. Has had tracheostomy for some time. Tube has fallen out and his airway is stable with stoma taped. ENT eval for need to replace trach. Review of Systems Ears, nose, mouth, throat: COMPLAINS OF: Hoarseness, DENIES: Throat pain, Odynophagia Past Family Social History Allergies: Coded Allergies: No Known Allergies (Verified Allergy, Unknown, 07/01/17) Physical Exam Vital Signs Vital Signs Date Time Temp Pulse Resp B/P (MAP) Pulse Ox O2 Delivery O2 Flow Rate FiO2 07/02/17 11:46 96.2 80 17 141/80 (100) 97 07/02/17 08:00 96.7 82 17 142/73 (96) 98 07/02/17 05:59 97.2 84 19 137/77 (97) 99 07/02/17 03:00 97.8 87 20 128/76 (93) 98 07/01/17 23:00 98.0 84 20 152/79 (103) 99 07/01/17 21:51 87 20 141/78 (99) 100 Room Air 07/01/17 21:38 108 20 161/121 (134) 98 Nasal Cannula 2.00 07/01/17 21:09 100 07/01/17 20:21 106 22 146/83 (104) 100 Nasal Cannula 2.00 07/01/17 19:20 100 21 07/01/17 18:51 102 18 99 Room Air 07/01/17 18:43 98.3 105 18 146/83 (104) 99 Physical Exam GENERAL: This is a well-nourished, well-developed patient, in no apparent distress. SKIN: No rashes, ecchymoses or lesions. Cool and dry. HEAD: Atraumatic. Normocephalic. No temporal or scalp tenderness. EYES: Pupils equal round and reactive. Extraocular motions intact. No scleral icterus. No injection or drainage. ENT: Nose without bleeding, purulent drainage or septal hematoma. Throat without erythema, tonsillar hypertrophy or exudate. Uvula midline. Airway patent. NECK:dressing dry. No air leak from trach site. Fiberoptic laryngoscopy: Limited exam due to poor cooperation. Can visualize down to epiglottis. No pooling of secretions. Cannot fully assess vocal cord mobility. Good airway, though no stridor. Laboratory Laboratory Tests Test 07/01/17 20:35 07/02/17 05:15 White Blood Count 8.0 8.3 Red Blood Count 4.12 4.02 Hemoglobin 12.3 12.3 Hematocrit 36.9 36.5 Mean Corpuscular Volume 89.6 90.8 Mean Corpuscular Hemoglobin 29.9 30.6 Mean Corpuscular Hemoglobin Concent 33.4 33.7 Red Cell Distribution Width 13.5 13.5 Platelet Count 350 348 Mean Platelet Volume 7.8 8.3 Neutrophils (%) (Auto) 55.9 45.7 Lymphocytes (%) (Auto) 29.6 36.9 Monocytes (%) (Auto) 11.9 10.9 Eosinophils (%) (Auto) 2.0 5.8 Basophils (%) (Auto) 0.6 0.7 Neutrophils # (Auto) 4.5 3.8 Lymphocytes # (Auto) 2.4 3.1 Monocytes # (Auto) 1.0 0.9 Eosinophils # (Auto) 0.2 0.5 Basophils # (Auto) 0.0 0.1 CBC Comment DIFF FINAL DIFF FINAL Differential Comment Prothrombin Time 20.1 Prothromb Time International Ratio 2.0 Activated Partial Thromboplast Time 33.3 Blood Urea Nitrogen 14 10 Creatinine 1.04 0.81 Random Glucose 178 146 Calcium Level 9.5 9.3 Sodium Level 133 137 Potassium Level 4.0 4.1 Chloride Level 100 104 Carbon Dioxide Level 24.9 27.4 Anion Gap 8 6 Estimat Glomerular Filtration Rate 86 114 Result Diagram: 07/02/17 0515 07/02/17 0515 Assessment and Plan Assessment and Plan 72 year old male. History of bilateral vocal cord paralysis. His airway is excellent currently without a trach. He is sedentary and does not necessarily need to have this replaced. There is an increased risk of obstruction, he is however able to be intubated if necessary and could have trach replaced then. His quality of life would be greatly enhanced without the trach. It would be prudent to complete a bedside swallowing eval while he is here and be sure he can tolerate a full diet. It would also be good to observe him a little longer before determining to not replace his trach tube. Carlo Beltre MD Jul 02, 2017 16:07
--- NOTE | 2017-07-02 17:21 | MB ---
cc: GALINA MOJICA M.D. DATE OF CONSULTATION: 07/02/2017 REASON FOR CONSULTATION: Status post tracheostomy dislodgement, requiring need for re-insertion. HISTORY OF PRESENT ILLNESS: The patient is a 72-year-old -[place] male who came to the emergency room because of a dislodged trache which could not be replaced. The patient had no distress, alert, oriented, speaking well. No fever. No chills. No cough. No expectoration. PAST MEDICAL HISTORY: The past medical history is that of: 1. Coronary artery disease. 2. Atrial fibrillation. 3. Bronchial asthma. 4. Congestive heart failure. 5. Previous CVA. 6. Diabetes mellitus. 7. Seizure disorder. 8. Hyperlipidemia. 9. History of DVT and seizure disorder. PAST SURGICAL HISTORY: 1. He did have a previous tracheostomy. 2. Surgical fusion. 3. Carotid endarterectomy. FAMILY HISTORY: Noncontributory. SOCIAL HISTORY: Does not smoke or drink at present; however, he is an ex-smoker. ALLERGIES: None known to medications. CURRENT MEDICATIONS: 1. Budesonide. 2. Coumadin. 3. Seroquel. 4. Isosorbide. 5. Glipizide. 6. Lasix. 7. DuoNeb. 8. Atorvastatin. 9. Lisinopril. 10. Levemir. 11. Metformin. 12. Sliding scale insulin. 13. Colace. 14. Tylenol. 15. Guaifenesin. REVIEW OF SYSTEMS: A twelve-point review of systems is as per the history of present illness and past history, otherwise negative. PHYSICAL EXAMINATION: GENERAL: On exam, the patient is alert and oriented, verbal without problems. VITAL SIGNS: Temperature 97, pulse 80, respirations 18, blood pressure 140/70. HEAD, EYES, EARS, NOSE, THROAT: Unremarkable. Eyes without icterus. NECK: Tracheostomy site with a bandage. CHEST: Without dullness to percussion and clear to auscultation. CARDIAC: PMI not appreciated. S1-S2 audible. No murmur, no rub. ABDOMEN: Lax. Bowel sounds audible. EXTREMITIES: No cyanosis, clubbing or edema. SKIN: Normal. LYMPHATIC: No lymphadenopathy. LABORATORY DATA: White count 8000, hemoglobin 12, hematocrit 36, platelets 348,000. Sodium 137, potassium 4.1, BUN 10, creatinine 0.8. INR 2.0. IMPRESSION: 1. Status post tracheostomy removal; seems stable at present. 2. Atrial fibrillation. 3. Diabetes mellitus. 4. Asthma, stable at present. 5. Coronary artery disease. 6. Peripheral vascular disease. 7. Diabetes mellitus. PLAN: The patient seems stable at present. There is no need for replacing the tracheostomy at this point and it would not be possible as the orifice is quite narrow. He does not have any respiratory distress with minimal secretion of the trache site. ENT to see the patient for any residual problems and vocal cord mobility. Will follow the patient's course along with you. I do thank you for asking me to partake in the patient's care. Galina Mojica MD WWW/MARYAM /3:29 PM /5:05 PM
--- NOTE | 2017-07-02 17:59 | PD.CONS ---
cc: Varinder Vanegas MD HPI Service General Surgery Consult Requested By Dr. Frye Reason for Consult Tracheostomy dislodgment Primary Care Physician Unknown History of Present Illness This is a 72 year old male with a past medical history of bilateral vocal cord paralysis, carotid endarterectomy, atrial fibrillation, asthma, coronary artery disease, hyperlipidemia, congestive heart failure, CVA, diabetes, DVT, seizures , and myocardial infarction. The patient's trach became dislodged at his [place]. He is able to maintain his airway and oxygen saturation. There was an attempt to recannulate in the ED but it was unsuccessful. A General Surgery consultation has been requested. Review of Systems Constitutional: DENIES: Fatigue, Fever Endocrine: DENIES: Polydipsia, Polyuria, Polyphagia Eyes: DENIES: Diplopia, Eye inflammation Ears, nose, mouth, throat: DENIES: Hearing loss, Vertigo Respiratory: DENIES: Apneas, Cough, Sputum production, Shortness of breath Cardiovascular: DENIES: Chest pain, Palpitations Gastrointestinal: DENIES: Abdominal pain, Diarrhea, Nausea Genitourinary: DENIES: Urinary frequency Musculoskeletal: DENIES: Joint pain Integumentary: DENIES: Abnormal pigmentation Hematologic/lymphatic: DENIES: Bruising Immunologic/allergic: DENIES: Eczema Neurologic: DENIES: Headache, Localized weakness Psychiatric: DENIES: Mood changes, Depression, Hallucinations Past Family Social History Past Medical History Bilateral vocal cord paralysis Atrial fibrillation Asthma coronary artery disease Hyperlipidemia congestive heart failure CVA Diabetes DVT Seizures Myocardial infarction Past Surgical History Carotid endarterectomy Cervical fusion Tracheostomy placement Reported Medications Budesonide Coumadin Seroquel Isosorbide Glipizide Lasix DuoNeb Atorvastain Lisinopril Allergies: Coded Allergies: No Known Allergies (Verified Allergy, Unknown, 07/01/17) Active Ordered Medications Current Medications Medications (Trade) Dose Ordered Sig/Nazario Route Start Time Stop Time Status Last Admin (NS Flush) 2 ml UNSCH PRN IVF 07/01/17 20:45 (NS Flush) 2 ml UNSCH PRN IV FLUSH 07/01/17 22:30 (NS Flush) 2 ml BID IV FLUSH 2/23/18 09:00 (Narcan Inj) 0.4 mg UNSCH PRN IV PUSH 07/01/17 22:30 (Lipitor) 20 mg HS PO 07/02/17 21:00 (Pulmicort Respule Neb) 0.5 mg Q12HR NEB NEB 07/02/17 08:00 07/02/17 08:23 (Colace) 100 mg BID PO 07/02/17 09:00 (Lasix) 40 mg BID PO 07/02/17 09:00 (Mucinex Er) 600 mg Q12HR PO 07/02/17 09:00 (Imdur) 30 mg DAILY@0700 PO 07/02/17 07:00 (KCl) 10 meq BID PO 07/02/17 09:00 (SEROquel) 25 mg BID PO 07/02/17 09:00 (Ultram) 50 mg QID PRN PO 07/01/17 22:30 (Prinivil) 2.5 mg DAILY PO 07/02/17 09:00 (Duoneb Neb) 1 ampule Q4HR NEB PRN NEB 07/01/17 22:45 (D50w (Vial) Inj) 50 ml UNSCH PRN IV PUSH 07/01/17 22:45 (Glucagon Inj) 1 mg UNSCH PRN OTHER 07/01/17 22:45 (NovoLOG SUPPLEMENTAL SCALE) 1 ACHS SLIDING SCALE SQ 07/02/17 08:00 (Pill Splitter) 1 ea UNSCH PRN OTHER 07/01/17 22:45 Dextrose/Sodium Chloride 1,000 ml @ 84 mls/hr [id number] IV 07/02/17 11:00 07/02/17 11:00 Family History Noncontributory Social History Denies tobacco use Denies ETOH use Denies illicit drug use Lives in [facility]. Physical Exam Vital Signs Vital Signs Date Time Temp Pulse Resp B/P (MAP) Pulse Ox O2 Delivery O2 Flow Rate FiO2 07/02/17 16:00 96.5 80 17 152/85 (107) 97 07/02/17 11:46 96.2 80 17 141/80 (100) 97 07/02/17 08:00 96.7 82 17 142/73 (96) 98 07/02/17 05:59 97.2 84 19 137/77 (97) 99 07/02/17 03:00 97.8 87 20 128/76 (93) 98 07/01/17 23:00 98.0 84 20 152/79 (103) 99 07/01/17 21:51 87 20 141/78 (99) 100 Room Air 07/01/17 21:38 108 20 161/121 (134) 98 Nasal Cannula 2.00 07/01/17 21:09 100 07/01/17 20:21 106 22 146/83 (104) 100 Nasal Cannula 2.00 07/01/17 19:20 100 21 07/01/17 18:51 102 18 99 Room Air 07/01/17 18:43 98.3 105 18 146/83 (104) 99 Physical Exam GENERAL: Pleasant 72 year old male resting in bed in no acute distress. SKIN: Warm and dry. HEAD: Atraumatic. Normocephalic. EYES: Pupils equal and round. No scleral icterus. No injection or drainage. ENT: No nasal bleeding or discharge. Mucous membranes pink and moist. NECK: Trachea removed; stoma with granulized tissue. No drainage. CARDIOVASCULAR: Regular rate and rhythm. RESPIRATORY: No accessory muscle use. Clear to auscultation. Breath sounds equal bilaterally. GASTROINTESTINAL: Abdomen soft, non-tender, nondistended. MUSCULOSKELETAL: Extremities without clubbing, cyanosis, or edema. No obvious deformities. NEUROLOGICAL: Awake and alert. No obvious cranial nerve deficits. Motor grossly within normal limits. Five out of 5 muscle strength in the arms and legs. Normal speech. PSYCHIATRIC: Appropriate mood and affect; insight and judgment normal. Laboratory Laboratory Tests Test 07/01/17 20:35 07/02/17 05:15 White Blood Count 8.0 8.3 Red Blood Count 4.12 4.02 Hemoglobin 12.3 12.3 Hematocrit 36.9 36.5 Mean Corpuscular Volume 89.6 90.8 Mean Corpuscular Hemoglobin 29.9 30.6 Mean Corpuscular Hemoglobin Concent 33.4 33.7 Red Cell Distribution Width 13.5 13.5 Platelet Count 350 348 Mean Platelet Volume 7.8 8.3 Neutrophils (%) (Auto) 55.9 45.7 Lymphocytes (%) (Auto) 29.6 36.9 Monocytes (%) (Auto) 11.9 10.9 Eosinophils (%) (Auto) 2.0 5.8 Basophils (%) (Auto) 0.6 0.7 Neutrophils # (Auto) 4.5 3.8 Lymphocytes # (Auto) 2.4 3.1 Monocytes # (Auto) 1.0 0.9 Eosinophils # (Auto) 0.2 0.5 Basophils # (Auto) 0.0 0.1 CBC Comment DIFF FINAL DIFF FINAL Differential Comment Prothrombin Time 20.1 Prothromb Time International Ratio 2.0 Activated Partial Thromboplast Time 33.3 Blood Urea Nitrogen 14 10 Creatinine 1.04 0.81 Random Glucose 178 146 Calcium Level 9.5 9.3 Sodium Level 133 137 Potassium Level 4.0 4.1 Chloride Level 100 104 Carbon Dioxide Level 24.9 27.4 Anion Gap 8 6 Estimat Glomerular Filtration Rate 86 114 Result Diagram: 07/02/1751407/02/1715 Assessment and Plan Assessment and Plan 72 year old male s/p tracheostomy dislodgement; unable to be replaced at bedside in ED -Speech eval -Clear liquids; advance as tolerated -Dr. Beltre also consulted; agree with trial of no trach -Should he run into any respiratory distress will need to be orally intubated and trach can be replaced in OR next week -Thank you for this consult Discussed Condition With Dr. Romina Villanueva Attending Statement The exam, history, and the medical decision-making described in the above note were completed with the assistance of the mid-level provider. I reviewed and agree with the findings presented. I attest that I had a [id number] encounter with the patient on the same day, and personally performed and documented my assessment and findings in the medical record. patient s/p trach remotely for bilateral cord paralysis trach out, patient is stable appreciate ENT input, agree with recommendations will follow Jeanine Olsen/Certified [employer] MAL Jul 02, 2017 17:59 Varinder Vanegas MD Jul 09, 2017 12:45
[2017-07-02] MEDS: ATORVASTATIN 20 MG TAB PO SCH (20:04)
[2017-07-02] MEDS: DOCUSATE SODIUM 100 MG CAP PO SCH (20:08)
[2017-07-02] MEDS: SODIUM CHLORIDE 0.9% FLUSH 10 ML FLUSH IV FLUSH SCH (20:08)
[2017-07-03] VITALS (12 sets, daily range): BP systolic 109–151; BP diastolic 66–87; PULSE 70–88; RESP 17–20; TEMP 96.1–99.3; O2SAT 95–100
[2017-07-03] MEDS: ISOSORBIDE MONONITRATE 30 MG CR TAB (IMDUR) PO SCH (06:11)
[2017-07-03 07:12] LABS: AUTOMATED NEUTROPHIL # 3.4 TH/MM3 (1.8-7.7); BASOPHIL % 0.6 % (0.0-2.0); EOSINOPHIL # 0.1 TH/MM3 (0-0.4); EOSINOPHIL % 1.8 % (0.0-4.0); HEMATOCRIT 38.9 % (39.0-51.0); HEMOGLOBIN 12.9 GM/DL (13.0-17.0); LYMPH % 30.7 % (9.0-44.0); LYMPHOCYTE # 1.8 TH/MM3 (1.0-4.8); MEAN CELL VOLUME 89.8 FL (80.0-100.0); MEAN CORPUSCULAR HEMOGLOBIN 29.8 PG (27.0-34.0); MEAN CORPUSCULAR HGB CONC 33.2 % (32.0-36.0); MEAN PLATELET VOLUME 7.7 FL (7.0-11.0); MONO % 11.1 % (0.0-8.0); MONOCYTE # 0.7 TH/MM3 (0-0.9); NEUT % 55.8 % (16.0-70.0); PLATELET COUNT 321 TH/MM3 (150-450); RED BLOOD COUNT 4.33 MIL/MM3 (4.50-5.90); RED CELL DISTRIBUTION WIDTH 13.3 % (11.6-17.2)
[2017-07-03 07:30] LABS: CALCIUM 9.1 MG/DL (8.5-10.1); CREATININE 0.84 MG/DL (0.60-1.30)
[2017-07-03] MEDS: RESP: BUDESONIDE 0.5 MG/2 ML NEB NEB SCH ×2 (08:00→20:39)
[2017-07-03] MEDS: DOCUSATE SODIUM 100 MG CAP PO SCH ×2 (08:24→21:00)
[2017-07-03] MEDS: QUEtiapine FUMARATE 25 MG TAB PO SCH ×2 (08:24→21:53)
[2017-07-03] MEDS: FUROSEMIDE 40 MG TAB PO SCH ×2 (08:24→21:53)
[2017-07-03] MEDS: LISINOPRIL 5 MG TAB PO SCH (08:25)
[2017-07-03] MEDS: SODIUM CHLORIDE 0.9% FLUSH 10 ML FLUSH IV FLUSH SCH ×2 (08:25→21:00)
[2017-07-03] MEDS: guaiFENesin E.R. 600 MG TAB PO SCH ×2 (08:25→21:52)
[2017-07-03] MEDS: POTASSIUM CHLORIDE 10 MEQ CONTROLLED RELEASE TAB PO SCH ×2 (08:25→21:53)
[2017-07-03] MEDS: INSULIN ASPART SUPPLEMENTAL SCALE SQ SCH ×4 (08:35→21:00)
[2017-07-03] MEDS: DEXT 5%-NACL 0.45% 1000 ML INJ 1,000 ML IV SCH ×2 (10:50→21:54)
--- NOTE | 2017-07-03 11:38 | HHI.PR ---
Subjective Subjective Notes Patient denies any problems with his breathing. He is awake and alert. He speaks normally. There is no evidence of respiratory distress. Objective Vitals/I&O Vital Signs Date Time Temp Pulse Resp B/P (MAP) Pulse Ox O2 Delivery O2 Flow Rate FiO2 07/03/17 11:33 77 07/03/17 08:00 96.8 17 126/81 (96) 99 07/01/17 21:51 Room Air 07/01/17 21:38 2.00 07/01/17 19:20 21 Labs Laboratory Tests Test 07/03/17 06:20 White Blood Count 6.0 Red Blood Count 4.33 Hemoglobin 12.9 Hematocrit 38.9 Mean Corpuscular Volume 89.8 Mean Corpuscular Hemoglobin 29.8 Mean Corpuscular Hemoglobin Concent 33.2 Red Cell Distribution Width 13.3 Platelet Count 321 Mean Platelet Volume 7.7 Neutrophils (%) (Auto) 55.8 Lymphocytes (%) (Auto) 30.7 Monocytes (%) (Auto) 11.1 Eosinophils (%) (Auto) 1.8 Basophils (%) (Auto) 0.6 Neutrophils # (Auto) 3.4 Lymphocytes # (Auto) 1.8 Monocytes # (Auto) 0.7 Eosinophils # (Auto) 0.1 Basophils # (Auto) 0.0 CBC Comment DIFF FINAL Differential Comment Blood Urea Nitrogen 9 Creatinine 0.84 Random Glucose 221 Calcium Level 9.1 Sodium Level 136 Potassium Level 4.1 Chloride Level 104 Carbon Dioxide Level 26.0 Anion Gap 6 Estimat Glomerular Filtration Rate 109 Narrative Exam Trach site indented. There is mild yellow sputum coming from the trach site. He is comfortably breathing without difficulty. He speaks normally. A/P Assessment and Plan Dislodged tracheostomy tube. Patient is doing well without his tracheostomy tube. There is no indication to replace it at this time. General surgery will sign off of this case. Please contact us if we can be of any help. Derrick Wood MD Jul 03, 2017 11:38
--- NOTE | 2017-07-03 12:23 | HHI.PR ---
Subjective Remarks Patient is sitting up in bed in [facility]. On room air oxygen. Objective Vital Signs Vital Signs Date Time Temp Pulse Resp B/P (MAP) Pulse Ox O2 Delivery O2 Flow Rate FiO2 07/03/17 11:49 97.3 82 17 119/72 (88) 99 07/03/17 11:33 77 07/03/17 08:00 96.8 81 17 126/81 (96) 99 07/03/17 04:00 96.9 85 20 122/69 (86) 100 07/03/17 03:40 72 07/03/17 00:00 96.1 75 20 130/69 (89) 100 07/02/17 23:43 84 07/02/17 20:22 82 07/02/17 20:00 96.0 81 15 148/87 (107) 96 07/02/17 16:00 96.5 80 17 152/85 (107) 97 I/O 07/02/17 07/02/17 07/02/17 07/03/17 07/03/17 07/03/17 07:00 15:00 23:00 07:00 15:00 23:00 Intake Total 0 ml 0 ml 600 ml 240 ml Output Total 550 ml 500 ml 1000 ml Balance -550 ml 0 ml 100 ml -760 ml Intake Oral 0 ml 0 ml 600 ml 240 ml Output Urine Total 550 ml 500 ml 1000 ml # Voids 0 2 # Bowel Movements 0 0 0 Result Diagram: 07/03/17 0620 07/03/17 06 Objective Remarks GENERAL: Patient is 72 sitting up in bed in [facility]. SKIN: Warm and dry. HEAD: Normocephalic. EYES: No scleral icterus. No injection or drainage. NECK: Supple, trachea midline. No JVD or lymphadenopathy. CARDIOVASCULAR: Regular rate and rhythm without murmurs, gallops, or rubs. RESPIRATORY: Breath sounds equal bilaterally. No accessory muscle use. GASTROINTESTINAL: Abdomen soft, non-tender, nondistended. MUSCULOSKELETAL: No cyanosis, or edema. Neuro: Awake and alert A/P Assessment and Plan 1. Status post tracheostomy removal; seems stable at present. 2. Atrial fibrillation. 3. Diabetes mellitus. 4. Asthma, stable at present. 5. Coronary artery disease. 6. Peripheral vascular disease. 7. Diabetes mellitus. PLAN: Oxygen PRN keep sat >92% Bronchodilators Check CXR Seen by ENT-Dr. Beltre Patient looks comfortable and in no acute resp distress Continue treatment plan Guilherme Hair MD Jul 03, 2017 12:23
--- NOTE | 2017-07-03 13:20 | RADRPT ---
EXAM DATE/TIME: 07/03/2017 12:53 [place] COMPARISON: CHEST SINGLE AP, September 06, 2015, 15:40. INDICATIONS : Trach dislodged. MEDICAL HISTORY : Diabetes mellitus type II. Hypertension. Congestive heart failure. CAD, Atrial fibrillation, Asthma. SURGICAL HISTORY : Coronary artery stent. Tracheostomy. ENCOUNTER: Subsequent ACUITY: 1 day PAIN SCORE: 0/10 LOCATION: chest FINDINGS: A single view of the chest demonstrates the lungs to be symmetrically aerated without evidence of mas s, infiltrate or effusion. The cardiomediastinal contours are unremarkable. There is anterior cervic al fusion plate present. The previously seen tracheostomy tube is not present. CONCLUSION: The tracheostomy tube is no longer seen. The lungs appear clear. Aaron Werner MD on July 03, 2017 at 13:14 Board Certified Radiologist. This report was verified electronically.
--- NOTE | 2017-07-03 19:30 | HHI.PR ---
Subjective Remarks states coughing some. Denies cp/sob Afebrile Objective Vitals Vital Signs Date Time Temp Pulse Resp B/P (MAP) Pulse Ox O2 Delivery O2 Flow Rate FiO2 07/03/17 15:53 96.3 70 17 109/66 (80) 98 07/03/17 11:49 97.3 82 17 119/72 (88) 99 07/03/17 11:33 77 07/03/17 08:00 96.8 81 17 126/81 (96) 99 07/03/17 04:00 96.9 85 20 122/69 (86) 100 07/03/17 03:40 72 07/03/17 00:00 96.1 75 20 130/69 (89) 100 07/02/17 23:43 84 07/02/17 20:22 82 07/02/17 20:00 96.0 81 15 148/87 (107) 96 I/O 07/02/17 07/02/17 07/02/17 07/03/17 07/03/17 07/03/17 07:00 15:00 23:00 07:00 15:00 23:00 Intake Total 0 ml 0 ml 600 ml 240 ml 480 ml Output Total 550 ml 500 ml 1000 ml Balance -550 ml 0 ml 100 ml -760 ml 480 ml Intake Oral 0 ml 0 ml 600 ml 240 ml 480 ml Output Urine Total 550 ml 500 ml 1000 ml # Voids 0 2 4 # Bowel Movements 0 0 0 0 Result Diagram: 07/03/17 0620 07/03/17 0620 Imaging Last Impressions Chest X-Ray 07/03/17 0000 Signed Impressions: Service Date/Time: Monday, July 03, 2017 12:53 - CONCLUSION: The tracheostomy tube is no longer seen. The lungs appear clear. Aaron Werner MD Objective Remarks GENERAL: Not in respiratory distress, sitting up in bed. SKIN: Warm and dry. HEAD: Normocephalic. EYES: No scleral icterus. No injection or drainage. NECK: Supple, trachea midline. No JVD or lymphadenopathy. CARDIOVASCULAR: Regular rate and rhythm without murmurs, gallops, or rubs. RESPIRATORY: Breath sounds equal bilaterally. No accessory muscle use. GASTROINTESTINAL: Abdomen soft, non-tender, nondistended. MUSCULOSKELETAL: No cyanosis, or edema. Neuro: Awake and alert Medications and IVs Current Medications Medications (Trade) Dose Ordered Sig/Nazario Route Start Time Stop Time Status Last Admin (NS Flush) 2 ml UNSCH PRN IVF 07/01/17 20:45 (NS Flush) 2 ml UNSCH PRN IV FLUSH 07/01/17 22:30 (NS Flush) 2 ml BID IV FLUSH 07/02/17 09:00 07/03/17 21:00 (Narcan Inj) 0.4 mg UNSCH PRN IV PUSH 07/01/17 22:30 (Lipitor) 20 mg HS PO 07/02/17 21:00 07/03/17 21:00 (Pulmicort Respule Neb) 0.5 mg Q12HR NEB NEB 07/02/17 08:00 07/04/17 07:34 (Colace) 100 mg BID PO 07/02/17 09:00 07/03/17 21:00 (Lasix) 40 mg BID PO 07/02/17 09:00 07/03/17 21:53 (Mucinex Er) 600 mg Q12HR PO 07/02/17 09:00 07/03/17 21:52 (Imdur) 30 mg DAILY@0700 PO 07/02/17 07:00 07/04/17 06:17 (KCl) 10 meq BID PO 07/02/17 09:00 07/03/17 21:53 (SEROquel) 25 mg BID PO 07/02/17 09:00 07/03/17 21:53 (Ultram) 50 mg QID PRN PO 07/01/17 22:30 07/03/17 21:52 (Prinivil) 2.5 mg DAILY PO 07/02/17 09:00 07/03/17 08:25 (Duoneb Neb) 1 ampule Q4HR NEB PRN NEB 07/01/17 22:45 (D50w (Vial) Inj) 50 ml UNSCH PRN IV PUSH 07/01/17 22:45 (Glucagon Inj) 1 mg UNSCH PRN OTHER 07/01/17 22:45 (NovoLOG SUPPLEMENTAL SCALE) 1 ACHS SLIDING SCALE SQ 07/02/17 08:00 07/03/17 21:00 (Pill Splitter) 1 ea UNSCH PRN OTHER 07/01/17 22:45 Dextrose/Sodium Chloride 1,000 ml @ 84 mls/hr [id number] IV 07/02/17 11:00 07/02/17 20:17 A/P Problem List: (1) Tracheostomy complication ICD Code: J95.00 - Unspecified tracheostomy complication Status: Acute Plan: Pulmonology and general surgery consulted. Since patient is tolerating being off trach, patient has been observed for now. General surgery signed off. Supplemental oxygen to keep oxygen saturation more than 92% (2) Hypertension ICD Code: I10 - Hypertension Status: Acute Plan: BP stable. Continue lisinopril 2.5 mg p.o. daily. (3) Hyperlipidemia ICD Code: E78.5 - Hyperlipidemia Status: Acute Plan: On a statin. Continue (4) CAD (coronary artery disease) ICD Code: I25.10 - Atherosclerosis of coronary artery Status: Acute Plan: Patient is chest pain-free. Continue statin, JAMESON inhibitor, Imdur. Resume Coumadin. (5) DM (diabetes mellitus) ICD Code: E11.9 - Diabetes mellitus Status: Acute Plan: Patient has history of peripheral vascular disease and CAD. Patient on metformin and glipizide at home which were held. Continue SSI with insulin NovoLog. Blood sugars with stable control today. (6) Atrial fibrillation ICD Code: I48.91 - Atrial fibrillation Status: Acute Plan: Coumadin held on admission. I will resume Coumadin since there is no surgical procedure planned. Monitor PT/INR daily. (7) PVD (peripheral vascular disease) ICD Code: I73.9 - Peripheral vascular disease Status: Acute Plan: On Coumadin. (8) H/O deep venous thrombosis ICD Code: Z86.718 - Personal history of other venous thrombosis and embolism Status: Chronic Plan: Resume Coumadin. Assessment and Plan DVT prophylaxis: SCDs, resume Coumadin. Discharge Planning DC once cleared by pulmonology. Problem Qualifiers (1) Tracheostomy complication: Qualified Codes: J95.00 - Unspecified tracheostomy complication (2) CAD (coronary artery disease): Qualified Codes: I25.10 - Atherosclerotic heart disease of [place] coronary artery without angina pectoris (3) DM (diabetes mellitus): Qualified Codes: E11.51 - Type 2 diabetes mellitus with diabetic peripheral angiopathy without gangrene Isidoro Amaya MD Jul 03, 2017 19:30
[2017-07-03] MEDS: ATORVASTATIN 20 MG TAB PO SCH (21:00)
[2017-07-04 00:45] VITALS: PULSE 89
[2017-07-04 03:40] VITALS: PULSE 68
[2017-07-04 04:00] VITALS: BP 129/78; PULSE 79; RESP 19; TEMP 97.8; O2SAT 100
[2017-07-04] MEDS: ISOSORBIDE MONONITRATE 30 MG CR TAB (IMDUR) PO SCH (06:17)
[2017-07-04] MEDS: RESP: BUDESONIDE 0.5 MG/2 ML NEB NEB SCH (07:34)
[2017-07-04 08:00] VITALS: BP 98/68; PULSE 82; RESP 17; TEMP 97.2; O2SAT 96
[2017-07-04] MEDS: LISINOPRIL 5 MG TAB PO SCH (09:00)
[2017-07-04] MEDS: DOCUSATE SODIUM 100 MG CAP PO SCH (09:05)
[2017-07-04] MEDS: guaiFENesin E.R. 600 MG TAB PO SCH (09:05)
[2017-07-04] MEDS: POTASSIUM CHLORIDE 10 MEQ CONTROLLED RELEASE TAB PO SCH (09:05)
[2017-07-04] MEDS: QUEtiapine FUMARATE 25 MG TAB PO SCH (09:05)
[2017-07-04] MEDS: FUROSEMIDE 40 MG TAB PO SCH (09:05)
[2017-07-04] MEDS: SODIUM CHLORIDE 0.9% FLUSH 10 ML FLUSH IV FLUSH SCH (09:06)
[2017-07-04] MEDS: INSULIN ASPART SUPPLEMENTAL SCALE SQ SCH ×3 (09:15→17:00)
[2017-07-04] MEDS ORDERED: WARFARIN SOD 2.5 MG TAB PO SCH ×2 (09:30→16:00)
[2017-07-04] MEDS: DEXT 5%-NACL 0.45% 1000 ML INJ 1,000 ML IV SCH (10:40)
--- NOTE | 2017-07-04 10:46 | HHI.PR ---
Subjective Remarks Patient is sitting up in chair in [place]. On room air oxygen. CXR from yesterday showed clear lungs. Objective Vital Signs Vital Signs Date Time Temp Pulse Resp B/P (MAP) Pulse Ox O2 Delivery O2 Flow Rate FiO2 07/04/17 08:00 97.2 82 17 98/68 (78) 96 07/04/17 04:00 97.8 79 19 129/78 (95) 100 07/04/17 03:40 68 07/04/17 00:45 89 07/03/17 23:59 97.8 74 19 121/71 (88) 97 07/03/17 23:51 84 07/03/17 20:41 95 21 07/03/17 20:00 99.3 78 20 151/87 (108) 98 07/03/17 19:44 88 07/03/17 15:53 96.3 70 17 109/66 (80) 98 07/03/17 11:49 97.3 82 17 119/72 (88) 99 07/03/17 11:33 77 I/O 07/03/17 07/03/17 07/03/17 07/04/17 07/04/17 07/04/17 07:00 15:00 23:00 07:00 15:00 23:00 Intake Total 240 ml 480 ml 360 ml 480 ml Output Total 1000 ml 450 ml 400 ml Balance -760 ml 480 ml -90 ml 80 ml Intake Oral 240 ml 480 ml 360 ml 480 ml Output Urine Total 1000 ml 450 ml 400 ml # Voids 4 # Bowel Movements 0 0 Result Diagram: 07/03/17 0620 07/03/17 0620 Other Results Last Impressions Chest X-Ray 07/03/17 0000 Signed Impressions: Service Date/Time: Monday, July 03, 2017 12:53 - CONCLUSION: The tracheostomy tube is no longer seen. The lungs appear clear. Aaron Werner MD Objective Remarks GENERAL: Patient is 72 sitting up in chair in [place]. SKIN: Warm and dry. HEAD: Normocephalic. EYES: No scleral icterus. No injection or drainage. NECK: Supple, trachea midline. No JVD or lymphadenopathy. CARDIOVASCULAR: Regular rate and rhythm without murmurs, gallops, or rubs. RESPIRATORY: Breath sounds equal bilaterally. No accessory muscle use. GASTROINTESTINAL: Abdomen soft, non-tender, nondistended. MUSCULOSKELETAL: No cyanosis, or edema. Neuro: Awake and alert A/P Assessment and Plan 1. Status post tracheostomy removal; seems stable at present. 2. Atrial fibrillation. 3. Diabetes mellitus. 4. Asthma, stable at present. 5. Coronary artery disease. 6. Peripheral vascular disease. 7. Diabetes mellitus. PLAN: Oxygen PRN keep sat >92% Bronchodilators CXR yesterday showed clear lungs Seen by ENT-Dr. Beltre Monitor CBC, coags- on Coumadin INR 2.0 on 07/01 Patient looks comfortable and in no acute resp distress Appears stable from pulm standpoint. Continue treatment plan Guilherme Hair MD Jul 04, 2017 10:46
[2017-07-04 11:09] VITALS: PULSE 80
[2017-07-04 12:00] VITALS: BP 121/74; PULSE 78; RESP 18; TEMP 96.9; O2SAT 99
[2017-07-04 12:26] LABS: INTERNATIONAL NORMALIZED RATIO 1.3 RATIO; PROTHROMBIN TIME - PATIENT 13.2 SEC (9.8-11.6)
[2017-07-04] MEDS ORDERED: TRAM50TA PO (14:40)
--- NOTE | 2017-07-04 14:40 | HHI.DCPOC ---
Discharge Care Plan Diagnosis: (1) Tracheostomy complication (2) CVA (cerebral infarction) (3) Hypertension (4) Hyperlipidemia (5) Carotid artery disease (6) PVD (peripheral vascular disease) (7) Atrial fibrillation (8) DM (diabetes mellitus) (9) H/O heart artery stent Goals to Promote Your Health * To prevent worsening of your condition and complications * To maintain your health at the optimal level Directions to Meet Your Goals Take your medications as prescribed Follow your dietary instruction Follow activity as directed Keep your appointments as scheduled Take your immunizations and boosters as scheduled If your symptoms worsen call your PCP, if no PCP go to Urgent Care Center or Emergency Room Smoking is Dangerous to Your Health. Avoid second hand smoke Call the 24-hour hour crisis hotline for domestic abuse at Isidoro Amaya MD Jul 04, 2017 14:40
--- NOTE | 2017-07-04 14:48 | HHI.DS ---
Discharge Summary Admission Date Jul 01, 2017 at 20:51 Discharge Date: Jul 04, 2017 Admitting Diagnosis Tracheostomy Dislodgement (1) Tracheostomy complication ICD Code: J95.00 - Unspecified tracheostomy complication Diagnosis: Principal Status: Resolved (2) Hypertension ICD Code: I10 - Hypertension Diagnosis: Principal Status: Chronic (3) Hyperlipidemia ICD Code: E78.5 - Hyperlipidemia Diagnosis: Principal Status: Chronic (4) CAD (coronary artery disease) ICD Code: I25.10 - Atherosclerosis of coronary artery Diagnosis: Principal Status: Chronic (5) DM (diabetes mellitus) ICD Code: E11.9 - Diabetes mellitus Diagnosis: Principal Status: Chronic (6) Atrial fibrillation ICD Code: I48.91 - Atrial fibrillation Status: Acute (7) PVD (peripheral vascular disease) ICD Code: I73.9 - Peripheral vascular disease Diagnosis: Principal Status: Chronic (8) H/O deep venous thrombosis ICD Code: Z86.718 - Personal history of other venous thrombosis and embolism Diagnosis: Principal Status: Chronic Procedures none Brief History - From Admission Germán Villanueva is a 72-year-old -[place] male 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 He was subsequently sent to the emergency room. The emergency room physician called Dr. Reinoso and Dr. Hicks. They attempted reinsertion at the bedside. It appears this was unsuccessful and/or there was temporary placement; however, at this point, the tracheostomy has been taken out. He appears stable. I discussed with the nurse and his 02 saturations have been normal. There is a slight bit of drainage there. The patient has no acute complaints although he is a poor historian. CBC/BMP: 07/03/17 0620 07/03/17 0620 Significant Findings Laboratory Tests Test 07/01/17 20:35 07/02/17 05:15 07/03/17 06:20 07/04/17 11:47 Red Blood Count 4.12 MIL/MM3 (4.50-5.90) 4.02 MIL/MM3 (4.50-5.90) 4.33 MIL/MM3 (4.50-5.90) Hemoglobin 12.3 GM/DL (13.0-17.0) 12.3 GM/DL (13.0-17.0) 12.9 GM/DL (13.0-17.0) Hematocrit 36.9 % (39.0-51.0) 36.5 % (39.0-51.0) 38.9 % (39.0-51.0) Monocytes (%) (Auto) 11.9 % (0.0-8.0) 10.9 % (0.0-8.0) 11.1 % (0.0-8.0) Monocytes # (Auto) 1.0 TH/MM3 (0-0.9) Prothrombin Time 20.1 SEC (9.8-11.6) 13.2 SEC (9.8-11.6) Activated Partial Thromboplast Time 33.3 SEC (24.3-30.1) Random Glucose 178 MG/DL (74-106) 146 MG/DL (74-106) 221 MG/DL (74-106) Sodium Level 133 MEQ/L (136-145) Estimat Glomerular Filtration Rate 86 ML/MIN (>89) Eosinophils (%) (Auto) 5.8 % (0.0-4.0) Eosinophils # (Auto) 0.5 TH/MM3 (0-0.4) Imaging Last Impressions Chest X-Ray 07/03/17 0000 Signed Impressions: Service Date/Time: Monday, July 03, 2017 12:53 - CONCLUSION: The tracheostomy tube is no longer seen. The lungs appear clear. Aaron Werner MD PE at Discharge GENERAL: Not in respiratory distress, sitting up in bed. SKIN: Warm and dry. HEAD: Normocephalic. EYES: No scleral icterus. No injection or drainage. NECK: Supple, trachea midline. No JVD or lymphadenopathy. CARDIOVASCULAR: Regular rate and rhythm without murmurs, gallops, or rubs. RESPIRATORY: Breath sounds equal bilaterally. No accessory muscle use. GASTROINTESTINAL: Abdomen soft, non-tender, nondistended. MUSCULOSKELETAL: No cyanosis, or edema. Neuro: Awake and alert Pt update on day of discharge The patient denies chest pain or shortness of breath, patient is afebrile and tolerating diet. Discussed the case with Dr. Encinas from pulmonology who cleared the patient to be discharged back to SNF. Pt Condition on Discharge: Stable Discharge Disposition: Discharge to SNF Discharge Time: > 30 minutes Discharge Instructions DIET: Follow Instructions for: Heart Healthy Diet Activities you can perform: Regular-No Restrictions, See Additionl Instruction Other Activity Instructions: as per Pt Follow up Referrals: Pulmonology - 1 Week Continued Medications: Acetaminophen (Tylenol) 325 Mg Tab 650 MG PO Q4H PRN for PAIN, TAB 0 Refills Maximum acetaminophen 3-4 grams; check daily total Atorvastatin (Atorvastatin) 20 Mg Tab 20 MG PO HS for Cholesterol Management, #30 TAB 0 Refills Bisacodyl Supp (Dulcolax Supp) 10 Mg Supp 10 MG RECTAL DAILY PRN for IF NO BM X 3 DAYS, #12 SUPP 0 Refills Budesonide Neb (Budesonide Neb) 0.5 Mg/2 Ml Neb 0.5 MG NEB Q12HR NEB for Breathing Treatment, #60 NEBULE 0 Refills Docusate Sodium (Colace) 100 Mg Capsule 100 MG PO BID Furosemide (Lasix) 40 Mg Tab 40 MG PO BID, #60 TAB 0 Refills Glipizide (Glipizide) 5 Mg Tab 2.5 MG PO BIDAC for Blood Sugar Management, #60 TAB 0 Refills Take 30 minutes before a meal Glucagon (Rdna) Inj Kit (Glucagen Hypokit Inj Kit) 1 Mg Kit 1 MG IM ONCE PRN for Blood Sugar Management, #1 KIT 0 Refills Guaifenesin (Guaifenesin ER) 600 Mg Tab.er.12h 600 MG PO Q12HR Insulin Aspart Inj (Novolog Flexpen Inj) 300 Unit/3 Ml Pen 2-10 UNITS SQ BID for Blood Sugar Management, #1 PEN 0 Refills Sliding Scale: 71-150=0 units, 151-200=2 units, 201-250=4 units, 251-300=6 units, 301-350=8 units, 351-400=10 units, .400=10 units and notify Insulin Detemir Inj (Levemir Flextouch Pen Inj) 300 unit/3 ML Pen 13 UNITS SQ HS for Blood Sugar Management, 0 Refills Ipratropium-Albuterol Neb (Duoneb) 0.5-2.5 Mg/3 Ml Neb 3 ML NEB TID for Breathing Treatment, #30 NEBULE 0 Refills Ipratropium-Albuterol Neb (Duoneb) 0.5-2.5 Mg/3 Ml Neb 3 ML NEB Q6HR PRN for SHORTNESS OF BREATH, #30 NEBULE 0 Refills Isosorbide Mononitrate ER (Isosorbide Mononitrate ER) 30 Mg Ellis 30 MG PO DAILY for Prevent Chest Pain, #30 TAB 0 Refills Lisinopril (Lisinopril) 2.5 Mg Tab 2.5 MG PO DAILY, #30 TAB 0 Refills Hold for systolic B/P less than 110 Magnesium Hydroxide Liq (Milk of Magnesia Liq) 400 Mg/5 Ml Susp 30 ML PO DAILY PRN for IF NO BM IN 3 DAYS, #1 BOTTLE 0 Refills Metformin (Metformin) 1,000 Mg Tab 1000 MG PO BID for Blood Sugar Management, #60 TAB 0 Refills With morning and evening meals Multiple Vitamins W/ Minerals (Multi-Vitamin/Minerals) 1 Tab Tab 1 TAB PO DAILY for Nutritional Supplement Nitroglycerin SL (Nitroglycerin SL) 0.4 Mg Subl 0.4 MG SL DIRECTED PRN for CHEST PAIN, #100 TAB.SL 0 Refills ONE TABLET UNDER THE TONGUE NEEDED FOR CHEST PAIN, MAY REPEAT EVERY FIVE MINUTES FOR A TOTAL OF 3 DOSES OR CALL 911 IF NO RELIEF Potassium Chloride ER (Potassium Chloride ER) 10 Meq Tab 10 MEQ PO BID for Electrolyte Replacement, #60 TAB 0 Refills Quetiapine (Quetiapine) 25 Mg Tab 25 MG PO BID, #60 TAB 0 Refills Sodium Phosphates (Enema Disposable) 1 [place] 1 APPLIC RECTAL ON 4TH DAY PRN for IF NO RESULTS FROM DULCOLAX Tramadol (Tramadol) 50 Mg Tab 50 MG PO QID PRN for PAIN, #30 TAB 0 Refills (This prescription has been renewed ) Warfarin (Coumadin) 2.5 Mg Tab 5.5 MG PO DAILY for Prevent Blood Clot, #30 TAB 0 Refills Take 1 tablet (2.5mg) with 3mg tablet for a total dose of 5.5mg daily Warfarin (Warfarin) 3 Mg Tab 5.5 MG PO DAILY for Blood Clot Prevention, #30 TAB 0 Refills Take 1 tablet (3mg) with 2.5mg tablet for a total dose of 5.5mg daily [Muscle Jel 3.5%] () 3.5% MENTHOL JEL 1 APPLIC TOPICAL BID for Pain Management Apply to sacroiliac (back pain) Discontinued Medications: Acetaminophen (Tylenol) 325 Mg Tab 650 MG PO DAILY, TAB 0 Refills Isidoro Amaya MD Jul 04, 2017 14:48
[2017-07-04] MEDS ORDERED: WARFARIN SOD 3 MG TAB PO SCH (16:00)
== END 2017-07-04 18:56 ==
LOC: NEPE 18:25 → NEDA 20:51 → NEDH 07-02 01:12 → N06A 07-02 05:40
PROVIDERS: ADMIT Family Medicine; ATTEND Family Medicine
DX: J95.00 Unspecified tracheostomy complication (principal); Z79.01 Long term (current) use of anticoagulants; M19.90 Unspecified osteoarthritis, unspecified site; J45.909 Unspecified asthma, uncomplicated; I48.91 Unspecified atrial fibrillation; F32.9 Major depressive disorder, single episode, unspecified; E78.00 Pure hypercholesterolemia, unspecified; R07.9 Chest pain, unspecified; I50.9 Heart failure, unspecified; I11.0 Hypertensive heart disease with heart failure; Z86.73 Personal history of transient ischemic attack (TIA), and cerebral infarction without residual deficits; I25.10 Atherosclerotic heart disease of native coronary artery without angina pectoris; E11.51 Type 2 diabetes mellitus with diabetic peripheral angiopathy without gangrene; Z86.718 Personal history of other venous thrombosis and embolism; K21.9 Gastro-esophageal reflux disease without esophagitis; K44.9 Diaphragmatic hernia without obstruction or gangrene; K75.9 Inflammatory liver disease, unspecified; I25.2 Old myocardial infarction; R56.9 Unspecified convulsions; Z79.899 Other long term (current) drug therapy; E78.5 Hyperlipidemia, unspecified; Z87.891 Personal history of nicotine dependence; G93.40 Encephalopathy, unspecified; R13.10 Dysphagia, unspecified; R53.1 Weakness; Z79.4 Long term (current) use of insulin; Z95.5 Presence of coronary angioplasty implant and graft; J38.02 Paralysis of vocal cords and larynx, bilateral
CPT/HCPCS: 71045; 80048; 82948; 85025; 85610; 85730; 92610; 94640; 94664; 99285; G0378; G8996; G8997; G8998; J1815; J7626